=== PATIENT | female | born 1950 | race Caucasian/White ===

== ENCOUNTER → 2017-01-24 | Outpatient (CLI) | payer MEDICARE ==
--- NOTE | 2017-01-25 13:59 | MM ---
Reason for exam: screening (asymptomatic). Last mammogram was performed 1 year ago. History: Patient is postmenopausal. Family history of breast cancer in maternal grandmother at age 60 and breast cancer in paternal grandmother at age 85. Physical Findings: A clinical breast exam by your physician is recommended on an annual basis and results should be correlated with mammographic findings. MG 3D Screening Mammo W/Cad Bilateral CC and MLO view(s) were taken. Prior study comparison: January 19, 2016, bilateral MG screening mammo w CAD. The breast tissue is heterogeneously dense. This may lower the sensitivity of mammography. No significant changes when compared with prior studies. ASSESSMENT: Benign, BI-RAD 2 RECOMMENDATION: Routine screening mammogram of both breasts in 1 year.
== END | disposition home or self-care (01) ==
LOC: RADMAMWWP 06:50
PROVIDERS: ATTEND Family Medicine
DX: Z12.31 Encounter for screening mammogram for malignant neoplasm of breast (principal)
CPT/HCPCS: 77063; G0202

== ENCOUNTER → 2018-01-31 | Outpatient (CLI) | payer MEDICARE ==
--- NOTE | 2018-01-31 13:49 | BD ---
EXAMINATION TYPE: Axial Bone Density DATE OF EXAM: 01/31/2018 COMPARISON: NONE CLINICAL HISTORY: Z78.0 POST MENOPAUSAL Height: 64.5 Weight: 189.4 FRAX RISK QUESTIONS: Alcohol (3 or more units per day): no Family History (Parent hip fracture): no Glucocorticoids (More than 3mos): no (Ex: prednisone, prednisolone, methylprednisolone, dexamethasone, and hydrocortisone). History of Fracture in Adulthood: no Secondary Osteoporosis: 1. Type 1 Diabetes: no 2. Hyperthyroidism: no 3. Menopause before 45: no 4. Malnutrition: no 5. Chronic liver disease: no Rheumatoid Arthritis: no Current Tobacco Use: no RISK FACTORS HISTORY OF: Family History of Osteoporosis: yes Active: yes Diet low in dairy products/other sources of calcium: no Postmenopausal woman: age 49 Lost more than 2 inches in height since high school: no Frequent falls: no Adrenal Insufficiency: no MEDICATIONS: blood pressure meds, cholesterol meds, raloxifene osteoporosis Medications: raloxifene Additional History: EXAM MEASUREMENTS: Bone mineral densitometry was performed using the [employer] System. Bone mineral density as measured about the Lumbar spine is: ----- L1-L4(G/cm2): 1.469 T Score Values are as follows: ----- L2: 1.7 ----- L3: 3.0 ----- L4: 3.8 ----- L1-L4: 2.4 Bone mineral density has: decreased -1.9 % since study of: 01.19.2016 Bone mineral density about the R hip (g/cm2): 0.833 Bone mineral density about the L hip (g/cm2): 0.856 T Score values are as follows: -----R Neck: -1.5 -----L Neck: -1.3 -----R Total: -1.0 -----L Total: -0.9 Bone mineral density has: decreased -0.2 % since study of: 01.19.2016 IMPRESSION: Osteopenia right femur. NOTE: T-SCORE=SD OF THE YOUNG ADULT MEAN.
--- NOTE | 2018-01-31 14:04 | MM ---
Reason for exam: screening (asymptomatic). Last mammogram was performed 1 year ago. History: Patient is postmenopausal. Family history of breast cancer in maternal grandmother at age 60 and breast cancer in paternal grandmother at age 85. Physical Findings: A clinical breast exam by your physician is recommended on an annual basis and results should be correlated with mammographic findings. MG 3D Screening Mammo W/Cad Bilateral CC and MLO view(s) were taken. Prior study comparison: January 24, 2017, bilateral MG 3d screening mammo w/cad. January 19, 2016, bilateral MG screening mammo w CAD. Calcifications are stable. No significant changes when compared with prior studies. ASSESSMENT: Benign, BI-RAD 2 RECOMMENDATION: Routine screening mammogram of both breasts in 1 year.
== END | disposition home or self-care (01) ==
LOC: RADMAMWWP 06:59
PROVIDERS: ATTEND Family Medicine
DX: Z12.31 Encounter for screening mammogram for malignant neoplasm of breast (principal); M85.851 Other specified disorders of bone density and structure, right thigh
CPT/HCPCS: 77063; 77067; 77080

== ENCOUNTER → 2018-08-17 | Outpatient (CLI) | payer MEDICARE ==
--- NOTE | 2018-08-17 09:30 | XR ---
EXAMINATION TYPE: XR cervical spine comp DATE OF EXAM: 08/17/2018 COMPARISON: NONE HISTORY: Neck pain TECHNIQUE: Four views are submitted. FINDINGS: The odontoid is intact. There are no compression deformities. The prevertebral soft tissue structur es are within normal limits. There is multilevel degenerative disc disease with severe changes at C5 -6 and C6-C7. Hypertrophic spurring noted anteriorly. Moderate degenerative disc disease C4-C5. Multi level facet arthropathy is seen and there is multilevel neural foraminal encroachment with most marke d findings at levels C4-C7. IMPRESSION: 1. Multilevel degenerative disc disease with severe changes involving the lower cervical spine with m ultilevel significant foraminal encroachment suspected. Recommend follow-up MRI.
== END ==
LOC: RADXRMAIN 08:59
PROVIDERS: ATTEND Family Medicine
DX: M50.30 Other cervical disc degeneration, unspecified cervical region (principal)
CPT/HCPCS: 72050

== ENCOUNTER → 2019-02-07 | Outpatient (CLI) | payer MEDICARE ==
--- NOTE | 2019-02-07 11:44 | MM ---
Reason for exam: screening (asymptomatic). Last mammogram was performed 1 year ago. History: Patient is postmenopausal. Family history of breast cancer in maternal grandmother at age 60 and breast cancer in paternal grandmother at age 85. Physical Findings: A clinical breast exam by your physician is recommended on an annual basis and results should be correlated with mammographic findings. MG 3D Screening Mammo W/Cad Bilateral CC, MLO, and XCCL view(s) were taken. Prior study comparison: January 31, 2018, bilateral MG 3d screening mammo w/cad. January 24, 2017, bilateral MG 3d screening mammo w/cad. The breast tissue is heterogeneously dense. This may lower the sensitivity of mammography. Benign appearing bilateral calcifications. No suspicious abnormality. No significant changes when compared with prior studies. ASSESSMENT: Benign, BI-RAD 2 RECOMMENDATION: Routine screening mammogram of both breasts in 1 year.
== END | disposition home or self-care (01) ==
LOC: RADMAMWWP 08:30
PROVIDERS: ATTEND Family Medicine
DX: Z12.31 Encounter for screening mammogram for malignant neoplasm of breast (principal)
CPT/HCPCS: 77063; 77067

== ENCOUNTER 2019-02-11 09:12 | Day surgery (SDC) | payer MEDICARE ==
[2019-02-07 15:27] VITALS: BMI 30.9
[~2019-02-11 09:12] MED LIST: LACTATED RINGERS 1,000 ML IV SCH; LIDOCAINE 1% 20 ML VIAL (10MG/ML) FOR IV START INTRADERMA PRN
[2019-02-11 09:28] VITALS: RESP 16; TEMP 98.6
[2019-02-11] MEDS ORDERED: LIDOCAINE 1% INJ 10MG/ML (20 ML MDV) ONE (09:46)
[2019-02-11] MEDS ORDERED: PROPOFOL 10 MG/ML 20 ML VIAL IV ONE (09:46)
--- NOTE | 2019-02-11 10:21 | P.PCN ---
Date of Procedure: 02/11/19 Procedure(s) Performed: Procedure: Total colonoscopy. Preoperative diagnosis: Screening for neoplasia, patient has history of polyps and family history of colon cancer in her mother. Postoperative diagnosis: Sigmoid diverticulosis with no evidence of acute diverticulitis, strictures, polyps or cancer. Preparation: HalfLytely prep. Sedation: Was provided by anesthesia. Brief clinical history: The patient is a 68-year-old female who is scheduled for this evaluation because of family history of colon cancer in her mother and personal history of polyps. Her last exam was in December 2013. The patient has no abdominal complaints, bleeding or anemia. Procedure: With the patient on her left lateral decubitus position and after informed consent and adequate sedation, the perianal area was inspected and it did not show any fissures or fistulas. There were no masses felt on digital rectal examination. The Olympus CFH 190L video colonoscope was then inserted in the rectum in the usual fashion and advanced to the cecum. There were several diverticular orifices seen scattered in the sigmoid as previously noted with no evidence of acute diverticulitis or strictures. The mucosa appeared healthy. No polyps or tumors were seen. I retroflexed the endoscope in the rectum before the endoscope was withdrawn. The patient tolerated the procedure well. Plan: The patient was reassured. Discussed dietary measures. She will follow- up with you as planned and I recommended repeat exam in 5 years.
[2019-02-11 10:40] VITALS: BP 121/81; PULSE 60
== END 2019-02-11 10:50 | disposition home or self-care (01) ==
LOC: ORWHC2ENDO 09:12
DX: Z12.11 Encounter for screening for malignant neoplasm of colon (principal); Z86.010 Personal history of colon polyps; Z80.0 Family history of malignant neoplasm of digestive organs; K57.30 Diverticulosis of large intestine without perforation or abscess without bleeding; K21.9 Gastro-esophageal reflux disease without esophagitis; I10 Essential (primary) hypertension; E78.5 Hyperlipidemia, unspecified; M19.90 Unspecified osteoarthritis, unspecified site; Z79.899 Other long term (current) drug therapy
CPT/HCPCS: G0105; J2001; J2704; 45378

== ENCOUNTER → 2019-05-24 | Outpatient (CLI) | payer MEDICARE ==
[2019-05-24 11:04] LABS: Appearance,Urine Clear (Clear); Bilirubin,Urine Negative (Negative); Blood,Urine Negative (Negative); Color,Urine Light Yellow; Glucose,Urine (UA) Negative (Negative); Ketones,Urine Negative (Negative); Leukocyte Esterase,Urine Negative (Negative); Nitrite,Urine Negative (Negative); Protein,Urine Negative (Negative); Specific Gravity,Urine 1.008 (1.001-1.035); Urobilinogen,Urine <2.0 mg/dL (<2.0)
[2019-05-24 11:07] LABS: HCT 43.3 % (34.0-46.0); HGB 14.2 gm/dL (11.4-16.0); MCH 31.8 pg (25.0-35.0); MCHC 32.7 g/dL (31.0-37.0); MCV 97.1 fL (80.0-100.0); Mean Platelet Volume 7.2; Platelet Count 204 k/uL (150-450); RBC 4.45 m/uL (3.80-5.40); RDW 13.3 % (11.5-15.5); WBC 7.9 k/uL (3.8-10.6)
[2019-05-24 17:03] LABS: Iron Saturation 30.62 (12.00-45.00)
[2019-05-24 17:06] LABS: African American GFR (CKD) 41.4 (60.0-200.0); Albumin 3.9 g/dL (3.80-4.90); Albumin/Globulin Ratio 1.95 (1.60-3.17); Anion Gap 6.4 mmol/L (4.00-12.00); BUN/Creat Ratio 18.67 Ratio (12.00-20.00); Calcium 9.3 mg/dL (8.7-10.3); Carbon Dioxide 28.6 mmol/L (21.6-31.8); Magnesium 1.9 mg/dL (1.5-2.4); Non-African American GFR(CKD) 35.7 (60.0-200.0); Phosphorus 2.7 mg/dL (2.4-5.1); Potassium 4.9 mmol/L (3.5-5.5); Total Bilirubin 0.9 mg/dL (0.3-1.2); Total Protein 5.9 g/dL (6.2-8.2); Uric Acid 6.2 mg/dL (2.9-7.7)
[2019-05-24 17:11] LABS: Ferritin 122.5 ng/mL (10.0-291.0); Vitamin D 25 Hydroxy 57.1 ng/mL (30.0-100.0)
== END ==
LOC: LABWHC1 09:40
PROVIDERS: ATTEND Internal Medicine
DX: N18.3 Chronic kidney disease, stage 3 (moderate) (principal); D63.1 Anemia in chronic kidney disease; E83.31 Familial hypophosphatemia; M10.9 Gout, unspecified; E55.9 Vitamin D deficiency, unspecified
CPT/HCPCS: 36415; 80053; 81003; 82306; 82728; 83540; 83550; 83735; 83970; 84100; 84550; 85027

== ENCOUNTER → 2019-07-01 | Outpatient (CLI) | payer MEDICARE ==
--- NOTE | 2019-07-01 21:45 | XR ---
Thoracic spine HISTORY: Pain 3 views of the thoracic spine There is multilevel spondylosis. Thoracic vertebral bodies show preserved height and alignment. Bone mineralization is reduced. Disc spaces are mildly reduced at the intervertebral levels. There is mild spinal curvature. impression: Degenerative disc disease. There may be underlying osteopenia.
== END | disposition home or self-care (01) ==
LOC: RADXRMAIN 16:19
PROVIDERS: ATTEND Family Medicine
DX: M51.34 Other intervertebral disc degeneration, thoracic region (principal)
CPT/HCPCS: 72070

== ENCOUNTER → 2019-08-05 | Outpatient (CLI) | payer MEDICARE ==
--- NOTE | 2019-08-05 20:11 | MR ---
EXAMINATION TYPE: MR cervical spine wo con DATE OF EXAM: 08/05/2019 COMPARISON: None HISTORY: Cervical disc degeneration, pain in left shoulder CONTRAST: Performed utilizing 0 mL intravenous Gadavist gadolinium contrast. TECHNIQUE: Multiplanar multiecho imaging on a 3.0 Lorna magnet is performed through the cervical spin e. FINDINGS: The craniovertebral junction is normal. Vertebral body alignment is normal. C7-T1: Endplate changes and mild intrathecal sac compression. There is mild right foraminal narrowin g. No spinal canal stenosis or neural foraminal stenosis is present.. C6-7: Broad-based disc bulges moderate intrathecal sac compression. There is close approximation or c ord contact present. AP spinal canal stenosis is not present. No cord deformity is evident. Uncoverte bral joint hypertrophy contributes to bilateral foraminal narrowing.. C5-6: Broad-based disc bulge is present. Endplate spurring from C5 is greater in the central left par acentral regions. Cord contact is present. No AP spinal canal stenosis is present. Neural foramen is moderately narrowed on the left and mild narrowing on the right. C4-5: No focal disc herniation or significant disc bulge is evident. No spinal canal stenosis present . Uncovertebral joint hypertrophy contributes to moderate left foraminal narrowing. C3-4: Small amount central endplate protrusion is present with mild intrathecal sac compression. No A P spinal canal stenosis or cord contact is evident. Neural foramen are patent.. C2-3: No focal disc herniation or significant disc bulge is evident. No spinal canal stenosis or varghese ral foraminal stenosis is present. IMPRESSIONS: 1. Endplate spurring at C5-6 with moderate anterior thecal sac compression and some cord contact. Cor d deformity or spinal canal stenosis is not present. 2. Broad-based disc bulging in close approximation of the spinal cord at C6-7. No spinal canal stenos is present. 3. Uncovertebral joint hypertrophy causing foraminal narrowing C6-7 left C4-5 and moderate narrowing on the left C5-6 with milder narrowing on the right at that level.
== END | disposition home or self-care (01) ==
LOC: RADMRIMAIN 11:02
PROVIDERS: ATTEND Family Medicine
DX: M48.02 Spinal stenosis, cervical region (principal); M50.823 Other cervical disc disorders at C6-C7 level
CPT/HCPCS: 72141

== ENCOUNTER → 2019-09-26 | Outpatient (CLI) | payer MEDICARE ==
[2019-09-26 07:51] LABS: Appearance,Urine Clear (Clear); Bilirubin,Urine Negative (Negative); Blood,Urine Negative (Negative); Color,Urine Light Yellow; Glucose,Urine (UA) Negative (Negative); Ketones,Urine Negative (Negative); Leukocyte Esterase,Urine Negative (Negative); Nitrite,Urine Negative (Negative); Protein,Urine Negative (Negative); Specific Gravity,Urine 1.005 (1.001-1.035); Urobilinogen,Urine <2.0 mg/dL (<2.0)
[2019-09-26 07:53] LABS: HCT 40.9 % (34.0-46.0); HGB 13.5 gm/dL (11.4-16.0); MCH 32.5 pg (25.0-35.0); MCV 98.4 fL (80.0-100.0); Mean Platelet Volume 7.3; Platelet Count 195 k/uL (150-450); RBC 4.16 m/uL (3.80-5.40); RDW 12.7 % (11.5-15.5); WBC 10.1 k/uL (3.8-10.6)
[2019-09-26 12:05] LABS: % Iron Saturation 27.7 (12.00-45.00); African American GFR (CKD) 54.2 (60.0-200.0); Albumin 3.8 g/dL (3.80-4.90); Albumin/Globulin Ratio 2.11 (1.60-3.17); Anion Gap 7.9 mmol/L (4.00-12.00); BUN/Creat Ratio 15.83 Ratio (12.00-20.00); Calcium 9.5 mg/dL (8.7-10.3); Carbon Dioxide 27.1 mmol/L (21.6-31.8); Globulin 1.8 g/dL (1.6-3.3); Magnesium 1.7 mg/dL (1.5-2.4); Non-African American GFR(CKD) 46.7 (60.0-200.0); Phosphorus 3.8 mg/dL (2.4-5.1); Potassium 3.8 mmol/L (3.5-5.5); Total Bilirubin 0.8 mg/dL (0.3-1.2); Total Protein 5.6 g/dL (6.2-8.2); Uric Acid 5.8 mg/dL (2.9-7.7)
[2019-09-26 12:14] LABS: Ferritin 182.9 ng/mL (10.0-291.0)
== END | disposition home or self-care (01) ==
LOC: LABWHC1 07:24
PROVIDERS: ATTEND Nurse Practitioner Family
DX: N18.3 Chronic kidney disease, stage 3 (moderate) (principal); D63.1 Anemia in chronic kidney disease; N39.0 Urinary tract infection, site not specified; N25.81 Secondary hyperparathyroidism of renal origin; M10.9 Gout, unspecified; E55.9 Vitamin D deficiency, unspecified
CPT/HCPCS: 36415; 80053; 81003; 82306; 82728; 83540; 83550; 83735; 83970; 84100; 84550; 85027

== ENCOUNTER → 2020-02-28 | Outpatient (CLI) | payer MEDICARE ==
--- NOTE | 2020-03-02 08:02 | BD ---
EXAMINATION TYPE: Axial Bone Density DATE OF EXAM: 02/28/2020 COMPARISON: 01/31/2018 CLINICAL HISTORY: Height: 64 IN Weight: 184 LBS RISK FACTORS HISTORY OF: Family History of Osteoporosis: YES MOTHER Active: YES Diet low in dairy products/other sources of calcium: YES Postmenopausal woman: AGE 51 Take estrogen and/or progesterone medications: NOT NOW How long: AGE 50-52 MEDICATIONS: Osteoporosis Medications: YES Which medication: Evista ALENDRONATE How Lon+ YEARS Additional Medications: ALENDRONATE, EVISTA, CALCIUM, BLOOD PRESSURE MEDS, BLADDER CONTROL MEDS, CHOL ESTEROL MEDS EXAM MEASUREMENTS: Bone mineral densitometry was performed using the [employer] System. Bone mineral density as measured about the Lumbar spine is: ----- L1-L4(G/cm2): 1.602 T Score Values are as follows: ----- L2: 2.5 ----- L3: 3.8 ----- L4: 5.2 ----- L1-L4: 3.5 Bone mineral density has: Increased 8.1% since study of: 01/31/2018 Bone mineral density about the R hip (g/cm2): 0.831 Bone mineral density about the L hip (g/cm2): 0.893 T Score values are as follows: -----R Neck: -1.5 -----L Neck: -1.0 -----R Total: -0.9 -----L Total: -0.6 Bone mineral density has: Increased 2.6% since study of: 01/31/2018 IMPRESSION: Osteopenia (T Score between -2.5 and -1) remains present femoral neck level right hip.. There remains slightly increased risk of fracture and the patient may be considered for treatment. Re-Screen 2-5 years. NOTE: T-SCORE=SD OF THE YOUNG ADULT MEAN.
== END | disposition home or self-care (01) ==
LOC: RADBDWWP 07:53
PROVIDERS: ATTEND Family Medicine
DX: M85.88 Other specified disorders of bone density and structure, other site (principal)
CPT/HCPCS: 77080

== ENCOUNTER → 2020-04-14 | Outpatient (CLI) | payer MEDICARE ==
--- NOTE | 2020-04-14 09:47 | MM ---
Reason for exam: additional evaluation requested from abnormal screening. Last mammogram was performed less than 1 month ago. History: Patient is postmenopausal. Family history of breast cancer in maternal grandmother at age 60 and breast cancer in paternal grandmother at age 85. Took hormonal contraceptives for 5 years. Took estrogen for 2 years. Physical Findings: Nurse did not find any significant physical abnormalities on exam. MG 3D Work Up W/Cad LT CC with magnification, ML with magnification, and ML view(s) were taken of the left breast. Prior study comparison: April 03, 2020, bilateral MG 3d screening mammo w/cad. February 07, 2019, bilateral MG 3d screening mammo w/cad. There are coarse calcifications seen. 6 month follow up. These results were verbally communicated with the patient and result sheet given to the patient on 04/14/20. ASSESSMENT: Probably benign, BI-RAD 3 RECOMMENDATION: Follow-up diagnostic mammogram of the left breast in 6 months.
== END | disposition home or self-care (01) ==
LOC: RADMAMWWP 08:06
PROVIDERS: ATTEND Family Medicine
DX: R92.8 Other abnormal and inconclusive findings on diagnostic imaging of breast (principal)
CPT/HCPCS: 77065; G0279; 77061

== ENCOUNTER → 2020-07-15 | Outpatient (CLI) | payer MEDICARE ==
[2020-07-15 10:05] LABS: HCT 41.8 % (34.0-46.0); HGB 14.1 gm/dL (11.4-16.0); MCH 33.3 pg (25.0-35.0); MCHC 33.9 g/dL (31.0-37.0); MCV 98.5 fL (80.0-100.0); Mean Platelet Volume 7.5; Platelet Count 192 k/uL (150-450); RBC 4.24 m/uL (3.80-5.40); RDW 12.7 % (11.5-15.5); WBC 8.4 k/uL (3.8-10.6)
[2020-07-15 10:10] LABS: Appearance,Urine Clear (Clear); Bilirubin,Urine Negative (Negative); Blood,Urine Negative (Negative); Color,Urine Light Yellow; Glucose,Urine (UA) Negative (Negative); Ketones,Urine Negative (Negative); Leukocyte Esterase,Urine Negative (Negative); Nitrite,Urine Negative (Negative); PH, Urine 7.5 (5.0-8.0); Protein,Urine Negative (Negative); Specific Gravity,Urine 1.004 (1.001-1.035); Urobilinogen,Urine <2.0 mg/dL (<2.0)
[2020-07-15 14:59] LABS: Ferritin 56.9 ng/mL (10.0-291.0)
[2020-07-15 22:08] LABS: % Iron Saturation 20.21 (12.00-45.00); African American GFR (CKD) 59.7 (60.0-200.0); Albumin 3.7 g/dL (3.80-4.90); Albumin/Globulin Ratio 1.76 (1.60-3.17); Anion Gap 6.6 mmol/L (4.00-12.00); BUN/Creat Ratio 12.73 Ratio (12.00-20.00); Calcium 8.6 mg/dL (8.7-10.3); Carbon Dioxide 27.4 mmol/L (21.6-31.8); Globulin 2.1 g/dL (1.6-3.3); Magnesium 2.1 mg/dL (1.5-2.4); Non-African American GFR(CKD) 51.5 (60.0-200.0); Phosphorus 2.8 mg/dL (2.4-5.1); Potassium 4.1 mmol/L (3.5-5.5); Total Bilirubin 0.8 mg/dL (0.2-1.2); Total Protein 5.8 g/dL (6.2-8.2); Uric Acid 4.8 mg/dL (2.9-7.7)
== END | disposition home or self-care (01) ==
LOC: LABWHC1 08:51
PROVIDERS: ATTEND Internal Medicine
DX: N18.30 Chronic kidney disease, stage 3 unspecified (principal)
CPT/HCPCS: 36415; 80053; 81003; 82306; 82728; 83540; 83550; 83735; 83970; 84100; 84550; 85027

== ENCOUNTER → 2020-12-03 | Outpatient (CLI) | payer MEDICARE ==
[2020-12-03 10:56] LABS: Appearance,Urine Clear (Clear); Bilirubin,Urine Negative (Negative); Blood,Urine Negative (Negative); Color,Urine Light Yellow; Glucose,Urine (UA) Negative (Negative); Ketones,Urine Negative (Negative); Leukocyte Esterase,Urine Negative (Negative); Nitrite,Urine Negative (Negative); Protein,Urine Negative (Negative); Specific Gravity,Urine 1.006 (1.001-1.035); Urobilinogen,Urine <2.0 mg/dL (<2.0)
[2020-12-03 14:46] LABS: HCT 37.8 % (37.2-46.3); HGB 12.3 g/dL (12.0-15.0); MCH 31.7 pg (27.0-32.0); MCHC 32.5 g/dL (32.0-37.0); MCV 97.4 fL (80.0-97.0); Mean Platelet Volume 10.8 fL (9.5-12.2); Platelet Count 208 X 10*3/uL (140-440); RBC 3.88 X 10*6/uL (4.10-5.20); RDW 13.8 % (11.5-14.5); WBC 7.25 X 10*3/uL (4.50-10.00)
[2020-12-03 18:18] LABS: % Iron Saturation 22.29 (12.00-45.00); African American GFR (CKD) 59.3 (60.0-200.0); Albumin 3.8 g/dL (3.80-4.90); Anion Gap 9.7 mmol/L (4.00-12.00); BUN/Creat Ratio 16.36 Ratio (12.00-20.00); Calcium 8.8 mg/dL (8.7-10.3); Carbon Dioxide 24.3 mmol/L (21.6-31.8); Globulin 1.9 g/dL (1.6-3.3); Magnesium 1.9 mg/dL (1.5-2.4); Non-African American GFR(CKD) 51.2 (60.0-200.0); Phosphorus 2.6 mg/dL (2.4-5.1); Potassium 4.3 mmol/L (3.5-5.5); Total Bilirubin 0.7 mg/dL (0.2-1.2); Total Protein 5.7 g/dL (6.2-8.2); Uric Acid 5.6 mg/dL (2.9-7.7)
[2020-12-03 18:27] LABS: Ferritin 39.7 ng/mL (10.0-291.0)
== END | disposition home or self-care (01) ==
LOC: LABWHC1 09:16
PROVIDERS: ATTEND Nurse Practitioner Family
DX: N18.30 Chronic kidney disease, stage 3 unspecified (principal)
CPT/HCPCS: 36415; 80053; 81003; 82306; 82728; 83540; 83550; 83735; 83970; 84100; 84550; 85027

== ENCOUNTER → 2020-12-10 | Outpatient (CLI) | payer MEDICARE ==
--- NOTE | 2020-12-11 12:32 | MM ---
Reason for exam: additional evaluation requested from abnormal screening. Last mammogram was performed 8 months ago. History: Patient is postmenopausal. Family history of breast cancer in maternal grandmother at age 60 and breast cancer in paternal grandmother at age 85. Took hormonal contraceptives for 5 years. Took estrogen for 2 years. Physical Findings: Nurse did not find any significant physical abnormalities on exam. MG 3D Diag Mammo W/Cad LT CC, MLO, and LM view(s) were taken of the left breast. Prior study comparison: April 14, 2020, left breast MG 3d work up w/cad LT. April 03, 2020, bilateral MG 3d screening mammo w/cad. The breast tissue is heterogeneously dense. This may lower the sensitivity of mammography. Finding: There are stable coarse heterogeneous, grouped/clustered calcifications in the left breast. These results were verbally communicated with the patient and result sheet given to the patient on 12/10/20. ASSESSMENT: Benign, BI-RAD 2 RECOMMENDATION: Return to routine screening mammogram schedule for both breasts.
== END | disposition home or self-care (01) ==
LOC: RADMAMWWP 14:10
PROVIDERS: ATTEND Family Medicine
DX: R92.1 Mammographic calcification found on diagnostic imaging of breast (principal); Z80.3 Family history of malignant neoplasm of breast; Z78.0 Asymptomatic menopausal state
CPT/HCPCS: 77065; G0279; 77061

== ENCOUNTER → 2021-01-14 | Outpatient (CLI) | payer MEDICARE ==
--- NOTE | 2021-01-14 15:50 | XR ---
EXAMINATION TYPE: XR Hip Complete LT DATE OF EXAM: 01/14/2021 CLINICAL HISTORY: Left hip pain when standing TECHNIQUE: AP and frogleg views of the left hip are obtained. COMPARISON: None. FINDINGS: There is no acute fracture or dislocation of the left hip. There is joint space narrowing of the superior hip, and moderate superolateral acetabular spurring. Scattered vascular calcification s. IMPRESSION: Moderate degenerative change of the left hip.
--- NOTE | 2021-01-14 15:52 | XR ---
EXAMINATION TYPE: XR knee complete LT DATE OF EXAM: 01/14/2021 COMPARISON: NONE HISTORY: Left knee pain when standing. M25.562 L knee pain. TECHNIQUE: AP, lateral, and oblique views of the left knee obtained. FINDINGS: No acute fracture. No dislocation. There is mild to moderate spurring and joint space narro wing at the medial compartment. Minimal spurring at the patellofemoral compartment. Patellar quadrice ps tendon enthesophyte may represent sequela of tendinosis. Normal mineralization. No significant sof t tissue swelling or suprapatellar joint effusion. IMPRESSION: No acute fracture or dislocation. Degenerative changes as above.
== END | disposition home or self-care (01) ==
LOC: RADXRMAIN 08:41
PROVIDERS: ATTEND Family Medicine
DX: M17.12 Unilateral primary osteoarthritis, left knee (principal); M76.892 Other specified enthesopathies of left lower limb, excluding foot
CPT/HCPCS: 73502

== ENCOUNTER 2021-02-15 10:12 | Day surgery (SDC) | payer MEDICARE ==
[2021-02-11 14:51] VITALS: BMI 28.6
[~2021-02-15 10:12] MED LIST changes: +LIDOCAINE 1% (10MG/ML) FOR IV START INTRADERMA PRN; -LIDOCAINE 1% 20 ML VIAL (10MG/ML) FOR IV START INTRADERMA PRN
[2021-02-15 10:44] VITALS: RESP 16; TEMP 97.7
[2021-02-15] MEDS ORDERED: PROPOFOL 10 MG/ML 20 ML VIAL IV ONE (11:32)
[2021-02-15] MEDS ORDERED: LIDOCAINE 1% INJ 10MG/ML (20 ML MDV) ONE (11:32)
--- NOTE | 2021-02-15 12:01 | P.PCN ---
Date of Procedure: 02/15/21 Description of Procedure: BRIEF HISTORY: Patient is a 70-year-old female presenting for outpatient esophagogastroduodenoscopy for evaluation of GERD. Patient reports a long- standing history of reflux previously treated with Zantac. She stopped the medication after this was taken off the market and reports worsening symptoms. Currently on omeprazole with good control of her symptoms. PROCEDURE PERFORMED: Esophagogastroduodenoscopy with biopsy. PREOPERATIVE DIAGNOSIS: GERD. ESTIMATED BLOOD LOSS: Minimal. IV sedation per anesthesia. PROCEDURE: After informed consent was obtained, the patient was brought into the endoscopy unit. IV sedation was administered by Anesthesia under continuous monitoring. Initially the Olympus GIF-190 video endoscope was inserted into the mouth. Esophagus intubated without any difficulty. It was gradually advanced into the stomach and duodenum and carefully examined. The bulb and the second part of the duodenum appeared normal Follow with biopsies taken. The scope at this time was withdrawn to the stomach, adequately insufflated with air, and upon careful examination, mucosa of the antrum, body, cardia and the fundus appeared normal, With biopsies of the antrum and body taken in the setting of mild scattered erythema suggestive of mild gastritis. The scope was then withdrawn into the esophagus. The GE junction was located at 38 cm from the incisors. The esophagus appeared normal. , with biopsies of lower esophagus taken There were no erosions or ulcerations seen and the patient tolerated the procedure well. IMPRESSION: 1. Mild gastritis. 2. Biopsies of the duodenum, antrum and body and lower esophagus. RECOMMENDATIONS: The findings of this examination were discussed with the patient and her family. Okay to resume diet. Okay to resume medications. Await pathology from biopsies. Continue omeprazole therapy. Follow up in primary care physician's office as previously scheduled.
[2021-02-15 12:15] VITALS: BP 120/66; PULSE 56
== END 2021-02-15 12:42 | disposition home or self-care (01) ==
LOC: ORWHC2ENDO 10:12
PROVIDERS: ATTEND Internal Medicine
DX: K21.00 Gastro-esophageal reflux disease with esophagitis, without bleeding (principal); K29.70 Gastritis, unspecified, without bleeding; I10 Essential (primary) hypertension; E78.5 Hyperlipidemia, unspecified; N28.9 Disorder of kidney and ureter, unspecified; M19.90 Unspecified osteoarthritis, unspecified site; Z79.899 Other long term (current) drug therapy; Z98.890 Other specified postprocedural states
CPT/HCPCS: 88305; 43239; J2001; J2704

== ENCOUNTER → 2021-05-12 | Outpatient (CLI) | payer MEDICARE ==
--- NOTE | 2021-05-14 11:55 | MM ---
Reason for exam: screening (asymptomatic). Last mammogram was performed 5 months ago. History: Patient is postmenopausal. Family history of breast cancer in maternal grandmother at age 60 and breast cancer in paternal grandmother at age 85. Took hormonal contraceptives for 5 years. Took estrogen for 2 years. Physical Findings: A clinical breast exam by your physician is recommended on an annual basis and results should be correlated with mammographic findings. MG 3D Screening Mammo W/Cad Bilateral CC and MLO view(s) were taken. Prior study comparison: December 10, 2020, left breast MG 3d diag mammo w/cad LT. April 03, 2020, bilateral MG 3d screening mammo w/cad. February 07, 2019, bilateral MG 3d screening mammo w/cad. There are scattered fibroglandular densities. No significant changes when compared with prior studies. ASSESSMENT: Benign, BI-RAD 2 RECOMMENDATION: Routine screening mammogram of both breasts in 1 year.
== END | disposition home or self-care (01) ==
LOC: RADMAMWWP 15:33
PROVIDERS: ATTEND Family Medicine
DX: Z12.31 Encounter for screening mammogram for malignant neoplasm of breast (principal); Z78.0 Asymptomatic menopausal state; Z80.3 Family history of malignant neoplasm of breast; Z79.3 Long term (current) use of hormonal contraceptives
CPT/HCPCS: 77063; 77067

== ENCOUNTER → 2021-07-02 | Outpatient (CLI) | payer MEDICARE ==
[2021-07-02 11:30] LABS: Appearance,Urine Clear (Clear); Bilirubin,Urine Negative (Negative); Blood,Urine Negative (Negative); Color,Urine Light Yellow; Glucose,Urine (UA) Negative (Negative); Ketones,Urine Negative (Negative); Leukocyte Esterase,Urine Negative (Negative); Nitrite,Urine Negative (Negative); PH, Urine 6.5 (5.0-8.0); Protein,Urine Negative (Negative); Specific Gravity,Urine 1.006 (1.001-1.035); Urobilinogen,Urine <2.0 mg/dL (<2.0)
[2021-07-02 16:22] LABS: HGB 13.3 g/dL (12.0-15.0); MCH 31.4 pg (27.0-32.0); MCHC 33.3 g/dL (32.0-37.0); MCV 94.6 fL (80.0-97.0); Platelet Count 216 X 10*3/uL (140-440); RBC 4.23 X 10*6/uL (4.10-5.20); RDW 12.9 % (11.5-14.5); WBC 7.25 X 10*3/uL (4.50-10.00)
[2021-07-02 17:38] LABS: % Iron Saturation 24.13 (12.00-45.00); African American GFR (CKD) 59.3 (60.0-200.0); Albumin 3.9 g/dL (3.8-4.9); Albumin/Globulin Ratio 1.77 (1.60-3.17); Anion Gap 10.3 mmol/L (4.00-12.00); BUN/Creat Ratio 11.55 Ratio (12.00-20.00); Blood Urea Nitrogen 12.7 mg/dL (9.0-27.0); Calcium 9.2 mg/dL (8.7-10.3); Carbon Dioxide 24.7 mmol/L (21.6-31.8); Ferritin 48.2 ng/mL (10.0-291.0); Globulin 2.2 g/dL (1.6-3.3); Magnesium 2.1 mg/dL (1.5-2.4); Non-African American GFR(CKD) 51.2 (60.0-200.0); Potassium 4.2 mmol/L (3.5-5.5); Total Bilirubin 0.6 mg/dL (0.30-1.20); Total Protein 6.1 g/dL (6.2-8.2); Uric Acid 4.6 mg/dL (2.9-7.7)
== END | disposition home or self-care (01) ==
LOC: LABWHC1 09:36
PROVIDERS: ATTEND Nurse Practitioner Family
DX: N18.30 Chronic kidney disease, stage 3 unspecified (principal); D64.9 Anemia, unspecified; N39.0 Urinary tract infection, site not specified; M10.9 Gout, unspecified
CPT/HCPCS: 36415; 80053; 81003; 82728; 83540; 83550; 83735; 84100; 84550; 85027

== ENCOUNTER → 2022-01-03 | Outpatient (CLI) | payer MEDICARE ==
[2022-01-03 18:39] LABS: HCT 41.7 % (37.2-46.3); HGB 13.4 g/dL (12.0-15.0); MCH 30.9 pg (27.0-32.0); MCHC 32.1 g/dL (32.0-37.0); MCV 96.1 fL (80.0-97.0); Mean Platelet Volume 11.2 fL (9.5-12.2); NRBC Per 100 WBC 0 /100 WBCS (0.0-0.0); Platelet Count 208 X 10*3/uL (140-440); RBC 4.34 X 10*6/uL (4.10-5.20); RDW 14.4 % (11.5-14.5); WBC 8.24 X 10*3/uL (4.50-10.00)
[2022-01-03 20:35] LABS: Appearance,Urine Clear (Clear); Bacteria,Urine None Seen /HPF (None Seen); Bilirubin,Urine Negative (Negative); Blood,Urine Negative (Negative); Color,Urine Yellow (Yellow); Ketones,Urine Negative (Negative); Nitrite,Urine Negative (Negative); Specific Gravity,Urine 1.012 (1.001-1.030); Urobilinogen,Urine 0.2 (0.2,1.0)
[2022-01-04 01:14] LABS: % Iron Saturation 28.84 (12.00-45.00); African American GFR (CKD) 46.8 (60.0-200.0); Albumin 3.9 g/dL (3.8-4.9); Albumin/Globulin Ratio 1.8 (1.60-3.17); Anion Gap 12.5 mmol/L (10.00-18.00); BUN/Creat Ratio 15.71 Ratio (12.00-20.00); Blood Urea Nitrogen 20.9 mg/dL (9.0-27.0); Calcium 9.1 mg/dL (8.7-10.3); Carbon Dioxide 22.1 mmol/L (20.0-27.5); Globulin 2.2 g/dL (1.6-3.3); Magnesium 2.2 mg/dL (1.5-2.4); Non-African American GFR(CKD) 40.4 (60.0-200.0); Phosphorus 3.4 mg/dL (2.4-5.1); Potassium 4.3 mmol/L (3.5-5.5); Total Bilirubin 0.8 mg/dL (0.30-1.20); Total Protein 6.1 g/dL (6.2-8.2); Uric Acid 5.4 mg/dL (2.9-7.7)
[2022-01-04 01:29] LABS: Ferritin 77.9 ng/mL (10.0-291.0)
== END | disposition home or self-care (01) ==
LOC: LABWHC1 07:58
PROVIDERS: ATTEND Internal Medicine
DX: N18.31 Chronic kidney disease, stage 3a (principal); N39.0 Urinary tract infection, site not specified; N25.81 Secondary hyperparathyroidism of renal origin; E55.9 Vitamin D deficiency, unspecified; M10.9 Gout, unspecified
CPT/HCPCS: 36415; 80053; 81001; 82306; 82728; 83540; 83550; 83735; 83970; 84100; 84550; 85027

== ENCOUNTER → 2022-02-16 | Outpatient (CLI) | payer MEDICARE ==
--- NOTE | 2022-02-16 09:24 | US ---
EXAMINATION TYPE: US kidneys/renal and bladder DATE OF EXAM: 02/16/2022 COMPARISON: US CLINICAL HISTORY: N18.31 STAGE 3 CHR KIDNEY DISEASE. Chronic kidney disease. EXAM MEASUREMENTS: Right Kidney: 10.4 x 4.5 x 4.0 cm Left Kidney: 9.9 x 4.8 x 4.5 cm Right Kidney: Anechoic area seen upper pole: 1.7 x 1.8 x 1.7 cm. Left Kidney: No hydronephrosis or masses seen Bladder: Appears anechoic. Bilateral Jets seen: Yes IMPRESSION: Simple cyst upper pole right kidney.
== END | disposition home or self-care (01) ==
LOC: RADUSWWP 08:07
PROVIDERS: ATTEND Internal Medicine Nephrology
DX: N18.31 Chronic kidney disease, stage 3a (principal); N28.1 Cyst of kidney, acquired
CPT/HCPCS: 76770

== ENCOUNTER → 2022-03-18 | Outpatient (CLI) | payer MEDICARE ==
--- NOTE | 2022-03-19 06:35 | BD ---
EXAMINATION TYPE: Axial Bone Density DATE OF EXAM: 03/18/2022 COMPARISON: 02.28.2020 CLINICAL HISTORY: 71 years year old Female. ICD-10 CODE: M85.80 DISORDER OF BONE Height: 63.5 Weight: 180 FRAX RISK QUESTIONS: Family History (Parent hip fracture): YES RISK FACTORS HISTORY OF: Family History of Osteoporosis: YES Active: YES Diet low in dairy products/other sources of calcium: YES Postmenopausal woman: YES, 51YRS OLD Take estrogen and/or progesterone medications: IN PAST FOR 3 YRS Hyperparathyroidism: NO Adrenal Insufficiency: NO MEDICATIONS: Osteoporosis Medications: YES, EVISTA FOR 10+ YRS Additional Medications: BP MEDS, CALCIUM, STATIN FOR CHOLESTEROL, LBL MEDS, REFLUX MEDS, MULTIVITAMIN Additional History: LBL, CHOLESTEROL, OSTEOPOROSIS, HYPERTENSION, REFLUX EXAM MEASUREMENTS: Bone mineral densitometry was performed using the [employer] System. Bone mineral density as measured about the Lumbar spine is: ----- L1-L4(G/cm2): 1.641 T Score Values are as follows: ----- L1: 2.1 ----- L2: 3.5 ----- L3: 4.7 ----- L4: 5.8 ----- L1-L4: 3.8 Bone mineral density has: Increased 2.4% since study of: 02.28.2020 Bone mineral density about the R hip (g/cm2): 0.934 Bone mineral density about the L hip (g/cm2): 0.967 T Score values are as follows: -----R Neck: -0.5 -----L Neck: -0.6 -----R Total: -0.6 -----L Total: -0.3 Bone mineral density has: Increased 3.9% since study of: 02.28.2020 FRAX%s: The graph provided illustrates a 12.0% chance for a major osteoporotic fx and a 1.4% chance f or the hips probability for fx in 10 years time. IMPRESSION: Normal (Values between +1 and -1 indicate normal bone mass). Consider repeating this study in 5 year s or sooner if there is some new clinical indication. NOTE: T-SCORE=SD OF THE YOUNG ADULT MEAN.
== END | disposition home or self-care (01) ==
LOC: RADBDWWP 07:10
PROVIDERS: ATTEND Family Medicine
DX: M85.80 Other specified disorders of bone density and structure, unspecified site (principal)
CPT/HCPCS: 77080

== ENCOUNTER → 2022-05-13 | Outpatient (CLI) | payer MEDICARE ==
--- NOTE | 2022-05-17 08:50 | MM ---
Reason for Exam: Screening (asymptomatic). Last screening mammogram was performed 12 month(s) ago. Patient History: Menarche at age 14. First Full-Term at age 28. Postmenopausal. Patient used Estrogen for 2 years. Patient used Hormonal Contraceptives for 5 years. Paternal grandmother had breast cancer, age 85. Maternal grandmother had breast cancer, age 60. Risk Values: Whitney 5 year model risk: 1.9%. NCI Lifetime model risk: 5.6%. Prior Study Comparison: 01/19/2016 Bilateral Screening Mammogram, [facility]. 01/24/2017 Bilateral Screening Mammogram, [facility]. 01/31/2018 Bilateral Screening Mammogram, [facility]. 02/07/2019 Bilateral Screening Mammogram, [facility]. 04/03/2020 Bilateral Screening Mammogram, [facility]. 04/14/2020 Left Diagnostic Mammogram, [facility]. 12/10/2020 Left Diagnostic Mammogram, [facility]. 05/12/2021 Bilateral Screening Mammogram, [facility]. Tissue Density: There are scattered fibroglandular densities. Findings: Analyzed By CAD. There are scattered calcifications bilaterally. There is a developing group of calcifications within the left breast. Additional evaluation with magnification views is recommended. Overall Assessment: Incomplete: need additional imaging evaluation, BI-RAD 0 Management: Diagnostic Mammogram of the left breast. A negative mammogram report should not preclude additional follow up of suspicious palpable abnormalities. Patient should continue monthly self breast exam. A clinical breast exam by your physician is recommended on an annual basis and results should be correlated with mammographic findings. Electronically signed and approved by: Romie Oliveira D.O. Radiologis
== END | disposition home or self-care (01) ==
LOC: RADMAMWWP 07:17
PROVIDERS: ATTEND Family Medicine
DX: Z12.31 Encounter for screening mammogram for malignant neoplasm of breast (principal); Z78.0 Asymptomatic menopausal state; Z80.3 Family history of malignant neoplasm of breast
CPT/HCPCS: 77063; 77067

== ENCOUNTER → 2022-05-19 | Outpatient (CLI) | payer MEDICARE ==
--- NOTE | 2022-05-19 09:00 | MM ---
Reason for Exam: Additional evaluation requested from abnormal screening. Last screening mammogram was performed less than 1 month ago. Patient History: Menarche at age 14. First Full-Term at age 28. Postmenopausal. Patient used Estrogen for 2 years. Patient used Hormonal Contraceptives for 5 years. Paternal grandmother had breast cancer, age 85. Maternal grandmother had breast cancer, age 60. Risk Values: Whitney 5 year model risk: 1.9%. NCI Lifetime model risk: 5.6%. Prior Study Comparison: 12/10/2020 Left Diagnostic Mammogram, [facility]. 05/12/2021 Bilateral Screening Mammogram, [facility]. 05/13/2022 Bilateral MG 3D screening mammo w/cad, [facility]. Tissue Density: Left: There are scattered fibroglandular densities. Findings: Analyzed By CAD. Course grouped microcalcifications 5:00 left breast are noted. Stereo biopsy recommended. Overall Assessment: Suspicious, BI-RAD 4 Management: Stereotactic Core Biopsy of the left breast. Electronically signed and approved by: Kaela Schofield M.D. Radiologist
== END | disposition home or self-care (01) ==
LOC: RADMAMWWP 07:31
PROVIDERS: ATTEND Family Medicine
DX: R92.8 Other abnormal and inconclusive findings on diagnostic imaging of breast (principal); Z78.0 Asymptomatic menopausal state; Z80.3 Family history of malignant neoplasm of breast
CPT/HCPCS: 77065; G0279; 77061

== ENCOUNTER → 2022-06-23 | Day surgery (SDC) | payer MEDICARE ==
[2022-06-23 07:24] VITALS: RESP 16
--- NOTE | 2022-06-23 08:07 | P.GSHP ---
History of Present Illness H&P Date: 06/23/22 Chief Complaint: abnormal left breast mammogram Mallorie had a routine screening mammogram performed on 9221. The mammogram revealed calcifications of concern in the left breast. This was confirmed on a left breast diagnostic mammogram of 9821. Stereotactic core b iopsy was recommended. The patient does not feel any lumps masses or nodules of concern in either breast. She has not had any recent trauma or infection in her breast. She has not had any surgery or biopsies of her breast in the past. This was found on a routine screening mammogram. Caffiene: 2 cups/day nicotine: none chocolate: occasional BCP: < 5 years in early twenties Family History: mother: colon cancer maternal grandmother: breast cancer at 85 maternal grandfather: brain cancer father: colon cancer paternal grandmother: breast cancer Hormonal History: menarche: 14 , age at first : 28, breast fed: no menopause: 50 hormones: 2 years; at the time of menopause; Premarin cream one time a month Surgical history: midfoot fusion left foot and bunyon cataract surgery arthoscopy on both knees Medical History: chronic kidney disease HTN ostepenia Social History: Nicotine: Negative Alcohol: Negative Drugs: Negative - Constitutional Constitutional: Denies chills, Denies fever - EENT Eyes: bilateral as per HPI, denies blurred vision, denies pain Ears: bilateral: decreased hearing (hearing aids), tinnitus Ears, nose, mouth and throat: Denies headache, Denies sore throat - Breasts Breasts: bilateral: as per HPI - Cardiovascular Cardiovascular: Denies chest pain, Denies shortness of breath - Respiratory Respiratory: Denies cough, Denies 7 - Gastrointestinal Comment: last colonoscopy 5 years ago Gastrointestinal: Denies abdominal pain, Denies diarrhea, Denies nausea, Denies vomiting - Genitourinary (Female) Genitourinary: Denies dysuria, Denies hematuria - Menstruation Menstruation: Reports postmenopausal - Musculoskeletal Comment: arthritis in knees Musculoskeletal: Reports as per HPI, Denies myalgias - Integumentary Integumentary: Denies pruritus, Denies rash - Neurological Neurological: Denies numbness, Denies weakness - Psychiatric Psychiatric: Denies anxiety, Denies depression - Endocrine Endocrine: Denies fatigue, Denies weight change - Hematologic/Lymphatic Comment: none - Allergic/Immunologic Allergic/Immunologic: Reports seasonal allergies Past Medical History Past Medical History: GERD/Reflux, Hyperlipidemia, Hypertension, Osteoarthritis (OA), Renal Disease Additional Past Medical History / Comment(s): DDD NECK,ENVIRONMENTAL ALLERGIES, CKD STAGE 3-A. History of Any Multi-Drug Resistant Organisms: None Reported Past Surgical History: Orthopedic Surgery Additional Past Surgical History / Comment(s): arthroscopic hilda knees, LEFT BUNIONECTOMY AND MID FOOT FUSION WITH CLIPS AND PINS (08/2020), COLONOSCOPY. bilat Cataract surgery 2019, lens implants Past Anesthesia/Blood Transfusion Reactions: No Reported Reaction Past Psychological History: No Psychological Hx Reported Smoking Status: Never smoker Past Alcohol Use History: Occasional Past Drug Use History: None Reported - Past Family History Mother Family Medical History: Cancer Additional Family Medical History / Comment(s): colon cancer Father Family Medical History: Cancer Additional Family Medical History / Comment(s): colon cancer Medications and Allergies Home Medications Medication Instructions Recorded Confirmed Type Raloxifene [Evista] 60 mg PO DAILY 04/03/16 06/23/22 History Solifenacin Succinate [Vesicare] 10 mg PO DAILY 04/03/16 06/23/22 History Alendronate Sodium [Fosamax] 70 mg PO REYES 02/07/19 06/23/22 History Irbesartan/Hydrochlorothiazide 1 each PO HS 02/07/19 06/23/22 History [Irbesartan-Hctz 300-12.5 mg Tb] Simvastatin [Zocor] 20 mg PO HS 02/07/19 06/23/22 History carvediloL [Coreg] 3.125 mg PO BID 02/07/19 06/23/22 History tiZANidine [Zanaflex] 4 mg PO DAILY PRN 02/07/19 06/23/22 History Calcium Carbonate [Calcium] 600 mg PO DAILY 02/11/21 06/23/22 History Iron 45 mg PO DAILY 02/11/21 06/23/22 History Loratadine [Claritin] 10 mg PO DAILY 02/11/21 06/23/22 History Multivit-Min/Iron/Folic/Lutein 1 each PO DAILY 02/11/21 06/23/22 History [Centrum Silver Women Tablet] Omeprazole 20 mg PO DAILY 02/11/21 06/23/22 History Ubidecarenone [Co Q-10] 400 mg PO DAILY 02/11/21 06/23/22 History Acetaminophen [Tylenol Arthritis] 650 mg PO DAILY 05/20/22 06/23/22 History [place]-3/Dha/Epa/Fish Oil [Fish Oil 1 each PO DAILY 05/20/22 06/23/22 History 1,000 mg Softgel] Allergies Allergy/AdvReac Type Severity Reaction Status Date / Time No Known Allergies Allergy Verified 06/23/22 07:39 Surgical - Exam Vital Signs Temp Pulse Resp BP 98.4 F 73 16 142/86 06/23/22 07:17 06/23/22 07:17 06/23/22 07:17 06/23/22 07:17 BMI: 29.2 - General no distress - Eyes normal ocular movement - Neck trachea midline - Respiratory normal respiratory effort, clear to auscultation - Cardiovascular Rhythm: regular Heart Sounds: normal: S1, S2 - Abdomen Abdomen: soft, non tender, no guarding, no rigid, no rebound - Integumentary normal turgor - Neurologic no disoriented, no combative - Musculoskeletal normal gait - Psychiatric oriented to time, oriented to person, oriented to place, speech is normal, memory intact Breast Exam: BRA: 38C Inspection: Bilateral grade 2/3 ptosis Palpation: Right breast: Multi-positional exam fibrocystic changes no dominant masses or nodules of concern Right axilla: No adenopathy of concern Left breast: Multiple positional exam fibrocystic changes no dominant masses or nodules of concern Left axilla: No adenopathy of concern Results Mammogram reviewed with Dr. Schofield; microcalcifications of concern lower mid- breast left side Assessment and Plan Assessment: Impression: Abnormal left breast mammogram, microcalcifications lower mid-breast of concern BIRADS for stereotactic core biopsy recommended Plan: Stereotactic core biopsy left breast Risk and benefits of the procedure discussed with the patient. Risks include but are not limited to bleeding, infection, reaction to the anesthetic. If the biopsy specimen were to be discordant and further tissue acquisition may be necessary. Alternatives such as watchful waiting resection of the operating room R discussed but not recommended. The patient understands and wishes to proceed. Cc: Dr. Jang
[2022-06-23 08:38] VITALS: BP 135/79; PULSE 61; TEMP 98.1
--- NOTE | 2022-06-23 12:29 | MM ---
Date of Procedure: 06/23/22 Preoperative Diagnosis: Microcalcifications of concern left breast lower midportion Postoperative Diagnosis: Same Procedure(s) Performed: Stereotactic core biopsy left breast lower midportion/CC from below approach utilized Anesthesia: local Surgeon: Ana Garcia Pathology: other (Breast tissue with microcalcifications and specimen) Condition: stable Disposition: same day Indications for Procedure: Abnormal microcalcifications of concern left breast lower midportion Operative Findings: Radiographic specimen reveals microcalcifications of concern Description of Procedure: The patient is a 71-year-old white female who underwent a routine screening mammogram and was noted to have coarse grouped microcalcifications left breast 5 o'clock position, a stereotactic core biopsy was recommended. Risks and benefits of the procedure were discussed with the patient as well as alternatives such as watchful waiting or resection in the operating room which were not recommended. The patient wished to proceed. The patient was brought to the stereotactic core biopsy room after physical examination. She was positioned prone on the lo-rad table. A CC from below approach was utilized. A hospice chaplain film was obtained and the area of concern was identified. The lesion was targeted. The breast was prepped using Betadine. 20 mL of 1% lidocaine were used to anesthetize the area of concern. A 9-gauge vacuum-assisted core rotating biopsy needle was driven to the correct coordinates. A prefire film was obtained. The needle was noted to be in the correct location. The needle was fired. Post fire film was obtained and the needle was noted to be in the correct location. 13 core biopsy specimens were obtained from the 9 to 3 o'clock position. Radiograph of the specimen revealed the calcifications of concern were sampled. A secure danelle Top-Hat clip was placed. Radiograph revealed this to be in the correct location. The patient tolerated the procedure in stable condition. The specimen was sent to pathology. The patient will follow up with Dr. Rivas next week. LADI
== END ==
LOC: RADMAMWWP 06:57
PROVIDERS: ATTEND Surgery
DX: N60.82 Other benign mammary dysplasias of left breast (principal); N62 Hypertrophy of breast; I12.9 Hypertensive chronic kidney disease with stage 1 through stage 4 chronic kidney disease, or unspecified chronic kidney disease; N18.31 Chronic kidney disease, stage 3a; E78.5 Hyperlipidemia, unspecified; M19.90 Unspecified osteoarthritis, unspecified site; Z80.3 Family history of malignant neoplasm of breast; Z80.0 Family history of malignant neoplasm of digestive organs; Z80.8 Family history of malignant neoplasm of other organs or systems; Z98.1 Arthrodesis status; Z98.41 Cataract extraction status, right eye; Z98.42 Cataract extraction status, left eye; Z86.59 Personal history of other mental and behavioral disorders; Z79.899 Other long term (current) drug therapy; Z79.810 Long term (current) use of selective estrogen receptor modulators (SERMs); Z79.83 Long term (current) use of bisphosphonates; Z79.811 Long term (current) use of aromatase inhibitors; Z79.02 Long term (current) use of antithrombotics/antiplatelets; Z79.2 Long term (current) use of antibiotics
CPT/HCPCS: 88305; 19081; A4648

== ENCOUNTER → 2022-06-23 | Outpatient (CLI) | payer MEDICARE ==
[2022-06-23 07:39] VITALS: BP 142/86; PULSE 73; RESP 16; TEMP 98.4
--- NOTE | 2022-06-23 08:34 | P.PCN ---
Date of Procedure: 06/23/22 Preoperative Diagnosis: Microcalcifications of concern left breast lower midportion Postoperative Diagnosis: Same Procedure(s) Performed: Stereotactic core biopsy left breast lower midportion/CC from below approach utilized Anesthesia: local Surgeon: Ana Garcia Pathology: other (Breast tissue with microcalcifications and specimen) Condition: stable Disposition: same day Indications for Procedure: Abnormal microcalcifications of concern left breast lower midportion Operative Findings: Radiographic specimen reveals microcalcifications of concern Description of Procedure: The patient is a 71-year-old white female who underwent a routine screening mammogram was noted to have coarse good microcalcifications left breast 5 o'clock position and stereotactic core biopsy was recommended. Risks and benefits of the procedure were discussed with the patient as well as alternatives such as watchful waiting or resection in the operating room which were not recommended. The patient wished to proceed. The patient was brought to the stereotactic core biopsy room after physical examination. She was positioned prone on the lo-rad table. A CC from below approach was utilized. A wood floor refinisher film was obtained and the area of concern was identified. The lesion was targeted. The breast was prepped using Betadine. 20 mL of 1% lidocaine were used to anesthetize the area of concern. A 9-gauge vacuum-assisted core rotating biopsy needle was driven to the correct coordinates. A prefire film was obtained. The needle was noted to be in the correct location. The needle was fired. Post fire film was obtained and the needle was noted to be in the correct location. 13 core biopsy specimens were obtained from the 9 to 3 o'clock position. Radiograph of the specimen revealed the calcifications of concern were sampled. A secure danelle Top-Hat clip was placed. Radiograph revealed this to be in the correct location. The patient tolerated the procedure in stable condition. The specimen was sent to pathology. The patient will follow up with Dr. Rivas next week.
== END | disposition home or self-care (01) ==
LOC: WWCWWP 07:00
PROVIDERS: ATTEND Surgery
DX: Z53.9 Procedure and treatment not carried out, unspecified reason (principal)

== ENCOUNTER → 2022-06-30 | Outpatient (CLI) | payer MEDICARE ==
--- NOTE | 2022-06-30 12:06 | P.PN ---
Subjective Progress Note Date: 06/30/22 Principal diagnosis: fibrocystic breast changes Mallorie is a 71 year old white female satus distal left breast stereotactic core biopsy on [id number]. 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 This was felt to be benign specific. She tolerated the procedure without difficulty. Objective - Constitutional General appearance: Present: cooperative - EENT ENT: Present: hearing grossly normal - Neck Neck: Present: normal ROM - Integumentary Integumentary Comment(s): Biopsy site no evidence of infection, mild ecchymosis no hematoma Assessment and Plan Assessment: Depression: Patient status post left breast or tactic core biopsy, benign and concordant fibroadenomatoid hyperplasia with calcifications and Bactrim fibrocystic changes Plan: Left breast mammogram in 6 months with physician exam at that time CC: Dr. Jang
[2022-06-30 12:47] VITALS: BP 149/92; PULSE 63; RESP 17; TEMP 98.3
== END | disposition home or self-care (01) ==
LOC: WWCWWP 11:32
PROVIDERS: ATTEND Surgery
DX: Z53.9 Procedure and treatment not carried out, unspecified reason (principal)

== ENCOUNTER → 2022-07-06 | Outpatient (CLI) | payer MEDICARE ==
[2022-07-06 11:34] LABS: HCT 40.9 % (37.2-46.3); HGB 13.8 g/dL (12.0-15.0); MCHC 33.7 g/dL (32.0-37.0); MCV 94.9 fL (80.0-97.0); Mean Platelet Volume 10.1 fL (9.5-12.2); NRBC Per 100 WBC 0 /100 WBCS (0.0-0.0); Platelet Count 243 X 10*3/uL (140-440); RBC 4.31 X 10*6/uL (4.10-5.20); RDW 13.6 % (11.5-14.5)
[2022-07-06 11:52] LABS: % Iron Saturation 23.52 (12.00-45.00); African American GFR (CKD) 48.1 (60.0-200.0); Albumin 4.1 g/dL (3.8-4.9); Albumin/Globulin Ratio 1.86 (1.60-3.17); Anion Gap 10.7 mmol/L (10.00-18.00); BUN/Creat Ratio 12.69 Ratio (12.00-20.00); Blood Urea Nitrogen 16.5 mg/dL (9.0-27.0); Calcium 9.2 mg/dL (8.7-10.3); Carbon Dioxide 24.3 mmol/L (20.0-27.5); Globulin 2.2 g/dL (1.6-3.3); Non-African American GFR(CKD) 41.5 (60.0-200.0); Phosphorus 2.9 mg/dL (2.4-5.1); Potassium 3.9 mmol/L (3.5-5.5); Total Bilirubin 0.7 mg/dL (0.30-1.20); Total Protein 6.3 g/dL (6.2-8.2); Uric Acid 5.5 mg/dL (2.9-7.7)
[2022-07-06 13:21] LABS: Appearance,Urine Clear (Clear); Bilirubin,Urine Negative (Negative); Blood,Urine Negative (Negative); Color,Urine Yellow (Yellow); Ketones,Urine Negative (Negative); Nitrite,Urine Negative (Negative); Specific Gravity,Urine 1.011 (1.001-1.030); Urobilinogen,Urine 0.2 (0.2,1.0)
[2022-07-06 13:25] LABS: Bacteria,Urine None Seen /HPF (None Seen)
== END | disposition home or self-care (01) ==
LOC: LABWHC1 08:04
PROVIDERS: ATTEND Internal Medicine Nephrology
DX: N25.81 Secondary hyperparathyroidism of renal origin (principal); N18.31 Chronic kidney disease, stage 3a; D63.1 Anemia in chronic kidney disease; N39.0 Urinary tract infection, site not specified; E55.9 Vitamin D deficiency, unspecified; M10.9 Gout, unspecified
CPT/HCPCS: 36415; 80053; 81001; 82306; 82728; 83540; 83550; 83735; 83970; 84100; 84550; 85027

== ENCOUNTER → 2022-11-30 | Outpatient (CLI) | payer MEDICARE ==
--- NOTE | 2022-11-30 13:45 | MM ---
Reason for Exam: Follow-up at short interval from prior study. Last screening mammogram was performed 6 month(s) ago. Patient History: Menarche at age 14. First Full-Term at age 28. Postmenopausal. Previous Hyperplasia w/o Atypia at age 71. Patient used Estrogen for 2 years. Patient used Hormonal Contraceptives for 5 years. 06/23/2022, Benign MG stereo VAD BX LT on the left side. Paternal grandmother had breast cancer, age 85. Maternal grandmother had breast cancer, age 60. Risk Values: Whitney 5 year model risk: 2.3%. NCI Lifetime model risk: 6.3%. Prior Study Comparison: 05/12/2021 Bilateral Screening Mammogram, [facility]. 05/13/2022 Bilateral MG 3D screening mammo w/cad, [facility]. 05/19/2022 Left MG 3D work up w/cad LT, [facility]. Tissue Density: Left: The breast tissue is heterogeneously dense. This may lower the sensitivity of mammography. Findings: Analyzed By CAD. Postbiopsy changes left breast with microclip marker in place. No evidence for mass or distortion. Couple of stable benign calcified lesions present. Overall Assessment: Benign, BI-RAD 2 Management: Screening Mammogram of both breasts in 6 months. A clinical breast exam by your physician is recommended on an annual basis and results should be correlated with mammographic findings. This exam should not preclude additional follow-up of suspicious palpable abnormalities. Results were given to the patient verbally at the time of exam. Electronically signed and approved by: Rafael Borja M.D. Radiologis
== END | disposition home or self-care (01) ==
LOC: RADMAMWWP 12:54
PROVIDERS: ATTEND Surgery
DX: R92.8 Other abnormal and inconclusive findings on diagnostic imaging of breast (principal); Z78.0 Asymptomatic menopausal state; Z80.3 Family history of malignant neoplasm of breast; Z98.890 Other specified postprocedural states
CPT/HCPCS: 77065; G0279; 77061

== ENCOUNTER → 2022-12-01 | Outpatient (CLI) | payer MEDICARE ==
[2022-12-01 12:19] VITALS: BP 158/79; PULSE 60; RESP 18; TEMP 98.2
--- NOTE | 2022-12-01 12:28 | P.PN ---
Subjective Progress Note Date: 12/01/22 Principal diagnosis: fibrocystic breast changes Mallorie had a routine screening mammogram performed on 9221. The mammogram revealed calcifications of concern in the left breast. This was confirmed on a left breast diagnostic mammogram of 9821. Stereotactic core biopsy was recommended. The patient did not feel any lumps masses or nodules of concern in either breast. She had not had any recent trauma or infection in her breast. She had not had any surgery or biopsies of her breast in the past. This was found on a routine screening mammogram. She had a left breast stero biopsy on 06-23-22 which was benign. She had a left breast mammogram on 11-30-22 which was BIRAD 2. Bilateral screening in 6 months recommended. He has not complained of any new lumps masses or nodules of concern in either breast. Caffiene: 2 cups/day nicotine: none chocolate: occasional BCP: < 5 years in early twenties Family History: mother: colon cancer maternal grandmother: breast cancer at 85 maternal grandfather: brain cancer father: colon cancer paternal grandmother: breast cancer Hormonal History: menarche: 14 , age at first : 28, breast fed: no menopause: 50 hormones: 2 years; at the time of menopause; Premarin cream one time a month Surgical history: midfoot fusion left foot and bunyon cataract surgery arthoscopy on both knees Medical History: chronic kidney disease HTN ostepenia COVID Oct 2022 Social History: Nicotine: Negative Alcohol: Negative Drugs: Negative - Constitutional Constitutional: Denies chills, Denies fever - EENT Eyes: bilateral as per HPI, denies blurred vision, denies pain Ears: bilateral: decreased hearing (hearing aids), tinnitus Ears, nose, mouth and throat: Denies headache, Denies sore throat - Breasts Breasts: bilateral: as per HPI - Cardiovascular Cardiovascular: Denies chest pain, Denies shortness of breath - Respiratory Respiratory: Denies cough - Gastrointestinal Comment: last colonoscopy 5 years ago Gastrointestinal: Denies abdominal pain, Denies diarrhea, Denies nausea, Denies vomiting - Genitourinary (Female) Genitourinary: Denies dysuria, Denies hematuria - Menstruation Menstruation: Reports postmenopausal - Musculoskeletal Comment: arthritis in knees Musculoskeletal: Reports as per HPI, Denies myalgias - Integumentary Integumentary: Denies pruritus, Denies rash - Neurological Neurological: Denies numbness, Denies weakness - Psychiatric Psychiatric: Denies anxiety, Denies depression - Endocrine Endocrine: Denies fatigue, Denies weight change - Hematologic/Lymphatic Comment: none - Allergic/Immunologic Allergic/Immunologic: Reports seasonal allergies Past Medical History Past Medical History: GERD/Reflux, Hyperlipidemia, Hypertension, Osteoarthritis (OA), Renal Disease Additional Past Medical History / Comment(s): DDD NECK,ENVIRONMENTAL ALLERGIES, CKD STAGE 3-A. History of Any Multi-Drug Resistant Organisms: None Reported Past Surgical History: Orthopedic Surgery Additional Past Surgical History / Comment(s): arthroscopic hilda knees, LEFT BUNIONECTOMY AND MID FOOT FUSION WITH CLIPS AND PINS (08/2020), COLONOSCOPY. bilat Cataract surgery 2019, lens implants Past Anesthesia/Blood Transfusion Reactions: No Reported Reaction Past Psychological History: No Psychological Hx Reported Smoking Status: Never smoker Past Alcohol Use History: Occasional Past Drug Use History: None Reported - Past Family History Mother Family Medical History: Cancer Additional Family Medical History / Comment(s): colon cancer Father Family Medical History: Cancer Additional Family Medical History / Comment(s): colon cancer Medications and Allergies Home Medications Medication Instructions Recorded Confirmed Type Raloxifene [Evista] 60 mg PO DAILY 04/03/16 06/23/22 History Solifenacin Succinate [Vesicare] 10 mg PO DAILY 04/03/16 06/23/22 History Alendronate Sodium [Fosamax] 70 mg PO REYES 02/07/19 06/23/22 History Irbesartan/Hydrochlorothiazide 1 each PO HS 02/07/19 06/23/22 History [Irbesartan-Hctz 300-12.5 mg Tb] Simvastatin [Zocor] 20 mg PO HS 02/07/19 06/23/22 History carvediloL [Coreg] 3.125 mg PO BID 02/07/19 06/23/22 History tiZANidine [Zanaflex] 4 mg PO DAILY PRN 02/07/19 06/23/22 History Calcium Carbonate [Calcium] 600 mg PO DAILY 02/11/21 06/23/22 History Iron 45 mg PO DAILY 02/11/21 06/23/22 History Loratadine [Claritin] 10 mg PO DAILY 02/11/21 06/23/22 History Multivit-Min/Iron/Folic/Lutein 1 each PO DAILY 02/11/21 06/23/22 History [Centrum Silver Women Tablet] Omeprazole 20 mg PO DAILY 02/11/21 06/23/22 History Ubidecarenone [Co Q-10] 400 mg PO DAILY 02/11/21 06/23/22 History Acetaminophen [Tylenol Arthritis] 650 mg PO DAILY 05/20/22 06/23/22 History [place]-3/Dha/Epa/Fish Oil [Fish Oil 1 each PO DAILY 05/20/22 06/23/22 History 1,000 mg Softgel] Allergies Allergy/AdvReac Type Severity Reaction Status Date / Time No Known Allergies Allergy Verified 06/23/22 07:39 Objective - Vital Signs Vital signs: Vital Signs Temp 98.2 F 12/01/22 12:15 Pulse 60 12/01/22 12:15 Resp 18 12/01/22 12:15 BP 158/79 12/01/22 12:15 Pulse Ox 98 12/01/22 12:15 FiO2 Intake & Output 11/30/22 12/01/22 12/01/22 18:59 06:59 18:59 Weight 79.379 kg - Exam BMI: 30 - Constitutional General appearance: Present: cooperative - EENT Eyes: Present: EOMI ENT: Present: hearing grossly normal - Neck Neck: Present: normal ROM - Respiratory Respiratory: bilateral: CTA - Cardiovascular Rhythm: regular Heart sounds: normal: S1, S2 - Gastrointestinal General gastrointestinal: Present: soft - Integumentary Integumentary: Present: normal turgor - Musculoskeletal Musculoskeletal: Present: gait normal - Psychiatric Psychiatric: Present: A&O x's 3, appropriate affect, intact judgment & insight - Additional findings Additional findings: Breast Exam: BRA: 38C Inspection: Bilateral grade 2/3 ptosis Palpation: Right breast: Multi-positional exam fibrocystic changes no dominant masses or nodules of concern Right axilla: No adenopathy of concern Left breast: Multiple positional exam fibrocystic changes no dominant masses or nodules of concern Left axilla: No adenopathy of concern Assessment and Plan Assessment: Impression: Fibrocystic breast changes Whitney risk is 2.3% to 5 years we've discussed chemoprophylaxis and patient has declined at this time We have also discussed that her breasts are dense and at this time she is going to be followed with mammograms Plan: Bilateral mammogram 6 months with physician exam at that time Cc: Dr. Jang
== END ==
LOC: WWCWWP 11:25
PROVIDERS: ATTEND Surgery
DX: N60.12 Diffuse cystic mastopathy of left breast (principal); K21.9 Gastro-esophageal reflux disease without esophagitis; E78.5 Hyperlipidemia, unspecified; M19.90 Unspecified osteoarthritis, unspecified site; M85.80 Other specified disorders of bone density and structure, unspecified site; I12.9 Hypertensive chronic kidney disease with stage 1 through stage 4 chronic kidney disease, or unspecified chronic kidney disease; N18.31 Chronic kidney disease, stage 3a; Z80.0 Family history of malignant neoplasm of digestive organs; Z80.3 Family history of malignant neoplasm of breast; Z86.16 Personal history of COVID-19

== ENCOUNTER → 2023-01-09 | Outpatient (CLI) | payer MEDICARE ==
[2023-01-09 17:00] LABS: Basophils # (A) 0.05 X 10*3/uL (0.00-0.10); Basophils % (A) 0.6 %; Eosinophils # (A) 0.06 X 10*3/uL (0.04-0.35); Eosinophils % (A) 0.8 %; HCT 40.3 % (37.2-46.3); HGB 13.3 g/dL (12.0-15.0); Immature Grans, Automated 0.3 %; Lymphocytes # (A) 2.46 X 10*3/uL (0.90-5.00); Lymphocytes % (A) 30.9 %; MCV 96.9 fL (80.0-97.0); Mean Platelet Volume 10.7 fL (9.5-12.2); Monocytes # (A) 0.51 X 10*3/uL (0.20-1.00); Monocytes % (A) 6.4 %; NRBC Per 100 WBC 0 /100 WBCS (0.0-0.0); Neutrophils # (A) 4.85 X 10*3/uL (1.80-7.70); Platelet Count 214 X 10*3/uL (140-440); RBC 4.16 X 10*6/uL (4.10-5.20); RDW 13.5 % (11.5-14.5); WBC 7.95 X 10*3/uL (4.50-10.00)
[2023-01-09 17:21] LABS: % Iron Saturation 23.13 (12.00-45.00); African American GFR (CKD) 51.1 (60.0-200.0); Albumin 3.8 g/dL (3.8-4.9); Albumin/Globulin Ratio 1.76 (1.60-3.17); Anion Gap 10.9 mmol/L (10.00-18.00); BUN/Creat Ratio 12.68 Ratio (12.00-20.00); Blood Urea Nitrogen 15.6 mg/dL (9.0-27.0); Calcium 9.5 mg/dL (8.7-10.3); Carbon Dioxide 26.1 mmol/L (20.0-27.5); Globulin 2.2 g/dL (1.6-3.3); Magnesium 1.9 mg/dL (1.5-2.4); Non-African American GFR(CKD) 44.1 (60.0-200.0); Phosphorus 3.9 mg/dL (2.4-5.1); Potassium 4.1 mmol/L (3.5-5.5); Total Bilirubin 0.6 mg/dL (0.30-1.20)
[2023-01-09 22:46] LABS: Microalbumin Creatinine Ratio <30 mg/g Creat (0-30); Urine Creatinine 48.4 mg/dL (28.0-217.0)
[2023-01-10 08:57] LABS: Appearance,Urine Clear (Clear); Bilirubin,Urine Negative (Negative); Blood,Urine Negative (Negative); Color,Urine Yellow (Yellow); Ketones,Urine Negative (Negative); Nitrite,Urine Negative (Negative); Specific Gravity,Urine 1.007 (1.001-1.030); Urobilinogen,Urine 0.2 (0.2,1.0)
== END | disposition home or self-care (01) ==
LOC: LABWHC1 09:23
PROVIDERS: ATTEND Nurse Practitioner Family
DX: E55.9 Vitamin D deficiency, unspecified (principal); N39.0 Urinary tract infection, site not specified; N25.81 Secondary hyperparathyroidism of renal origin; M10.9 Gout, unspecified; N18.31 Chronic kidney disease, stage 3a; D63.1 Anemia in chronic kidney disease
CPT/HCPCS: 36415; 80053; 81003; 82043; 82306; 82570; 82728; 83540; 83550; 83735; 83970; 84100; 84550; 85025

== ENCOUNTER → 2023-03-27 | Outpatient (CLI) | payer MEDICARE ==
[2023-03-27 09:21] LABS: Partial Thromboplastin Time 23.5 sec (22.0-30.0); Prothrombin Time 10.2 sec (9.0-12.0)
[2023-03-27 11:57] LABS: Appearance,Urine Clear (Clear); Bilirubin,Urine Negative (Negative); Blood,Urine Negative (Negative); Color,Urine Yellow (Yellow); Ketones,Urine Negative (Negative); Nitrite,Urine Negative (Negative); PH, Urine 6.5; Urobilinogen,Urine 0.2 E.U./DL
[2023-03-27 12:01] LABS: HCT 40.8 % (37.2-46.3); HGB 13.8 d/dL (12.0-15.0); MCH 32.4 pg (27.0-32.0); MCHC 33.8 d/dL (32.0-37.0); MCV 95.8 FL (80.0-97.0); Mean Platelet Volume 10.8 FL (9.5-12.2); NRBC Per 100 WBC 0 X 10*3/uL (0.00-0.01); Platelet Count 202 X 10*3/uL (140-440); RBC 4.26 X 10*6/uL (4.10-5.20); RDW 13.2 % (11.5-14.5); WBC 8.18 X 10*3/uL (4.50-10.00)
[2023-03-27 16:11] LABS: ALT 21 U/L (8-44); AST 16 U/L (13-35); Albumin/Globulin Ratio 1.82 Ratio (1.60-3.17); Alkaline Phosphatase 64 U/L (41-126); BUN/Creat Ratio 14.77 Ratio (12.00-20.00); Blood Urea Nitrogen 19.2 mg/dL (9.0-27.0); Calcium 9.6 mg/dL (8.7-10.3); Chloride 103 mmol/L (96-109); Globulin 2.2 d/dL (1.6-3.3); Glucose 99 mg/dL (70-110); Sodium 140 mmol/L (135-145); Total Bilirubin 0.5 mg/dL (0.3-1.2); Total Protein 6.2 d/dL (6.2-8.2)
== END | disposition home or self-care (01) ==
LOC: LABPAT 08:19
PROVIDERS: ATTEND Orthopaedic Surgery
DX: Z01.812 Encounter for preprocedural laboratory examination (principal); M17.11 Unilateral primary osteoarthritis, right knee; R94.31 Abnormal electrocardiogram [ECG] [EKG]
CPT/HCPCS: 80053; 81003; 85027; 85610; 85730; 87070; 93005

== ENCOUNTER → 2023-04-07 | Outpatient (CLI) | payer MEDICARE ==
[~2023-04-07] MED LIST changes: -LACTATED RINGERS 1,000 ML IV SCH; -LIDOCAINE 1% (10MG/ML) FOR IV START INTRADERMA PRN; +REGADENOSON 0.4 MG/5 ML SYRINGE IV PRN
--- NOTE | 2023-04-07 12:30 | CA ---
Lexiscan Nuclear Stress Test Report Name: Mallorie Tuttle Exam Date: 04/07/2023 10:08 Exam Location: [place] Stress Ht (in): 64 Wt (lb): 180 BSA: 1.87 Ordering Phys: Alex Jang DO Referring Phys: Eric Magana MD Technologist: Mani Jimenez Age: 72 Gender: F : 1950 Procedure CPT: Indications: R94.31 ABNORMAL ELECTROCARDIOGRAM ICD-10 Codes: Patient History: Medications: Meds past 24 hrs: Pretest Chest Pain: STRESS TEST Lexiscan Protocol Exercise Duration (min:sec): 02:[address] Depressions (mm): Angina Score: Logan Score: Resting HR (bpm): 57 Peak HR (bpm): 94 Resting BP (mmHg): 157 / 82 Peak BP (mmHg): 153 / 79 MPHR: 149 Target HR: 127 % MPHR: 63 METS: 1.0 Total Dose: Peak Dose: Atropine: Double Product: 89351 BP Response: Stress Termination: PROTOCOL COMPLETE Stress Symptoms: NO SYMPTOMS Stress Summary: ECG ANALYSIS Resting ECG: Sinus rhythm. Normal conduction. No arrhythmias. Normal repolarization. Stress ECG: No ECG changes from baseline with Lexiscan infusion. CONCLUSIONS No ECG evidence of ischemia with Lexiscan infusion. Nuclear test results to follow. Dr. Damian Shultz MD (Electronically Signed) Final Date: 07 April 2023 12:29
--- NOTE | 2023-04-07 13:39 | NM ---
EXAMINATION TYPE: NM stress lexiscan cardiolite DATE OF EXAM: 04/07/2023 COMPARISON: NONE CLINICAL INDICATION: Female, 72 years old with history of R94.31 ABNORMAL ELECTROCARDIOGRAM; TECHNIQUE: After the intravenous administration of 9.6 mCi Tc 99m Sestamibi - Cardiolite resting SPE CT images acquired 45 minutes post injection. The patient received 0.4mg Lexiscan, 24.7 mCi Tc 99m Sestamibi - Stress images obtained [address] injection FINDINGS: Review of stress and rest SPECT images demonstrates fixed defect involving the cardiac apex without d efinite reversible ischemia suggested in this time. Gated analysis shows normal wall motion with an e stimated left ventricular ejection fraction of 70 %. IMPRESSION: No scintigraphic evidence for reversible ischemia.
== END | disposition home or self-care (01) ==
LOC: RADNMMAIN 07:49
PROVIDERS: ATTEND Family Medicine
DX: R94.31 Abnormal electrocardiogram [ECG] [EKG] (principal)
CPT/HCPCS: 93017; 78452; A9500; J2785

== ENCOUNTER 2023-04-14 05:38 | Day surgery (SDC) | payer MEDICARE ==
[2023-04-05 15:36] VITALS: BMI 30.5
[2023-04-14] MEDS ORDERED: LIDOCAINE 1% (10MG/ML) FOR IV START INTRADERMA PRN (05:59)
[2023-04-14] MEDS ORDERED: ONDANSETRON 4 MG/2 ML VIAL IVP ONE (05:59)
[2023-04-14] MEDS ORDERED: MIDAZOLAM 2 MG/2 ML VIAL IV PRN (05:59)
[2023-04-14] MEDS ORDERED: DEXAMETHASONE SOD PHOSPHATE 4 MG/ML 1 ML VIAL IV ONE (05:59)
[2023-04-14] MEDS ORDERED: ACETAMINOPHEN TAB 500 MG TAB PO PRN (06:00)
[2023-04-14] MEDS ORDERED: KETOROLAC 15 MG/ML 1 ML VIAL IVP PRN (06:00)
[2023-04-14] MEDS ORDERED: oxyCODONE ER 10 MG TAB.ER.12H PO PRN (06:00)
[2023-04-14] MEDS ORDERED: ONDANSETRON 4 MG/2 ML VIAL IVP PRN ×2 (06:00→09:56)
[2023-04-14] MEDS ORDERED: DOCUSATE 100 MG CAP PO PRN (06:00)
[2023-04-14] MEDS ORDERED: TRANEXAMIC 1,000 MG/100ML-NACL 1,000 MG in SALINE 1 100ML.BAG IVPB PRN (06:00)
[2023-04-14] MEDS ORDERED: TRANEXAMIC 1,000 MG/100ML-NACL 1,000 MG in SALINE 1 100ML.BAG IV PRN (06:00)
[2023-04-14] MEDS ORDERED: DEXAMETHASONE SOD PHOSPHATE 10 MG/ML 1 ML VIAL IV PRN (06:00)
[2023-04-14] MEDS ORDERED: FAMOTIDINE 20 MG/2 ML VIAL IVP PRN (06:00)
[2023-04-14] MEDS: LACTATED RINGERS 1,000 ML IV SCH ×2 (06:09→15:53)
[2023-04-14] MEDS ORDERED: fentaNYL (PF) 50 MCG/ML 2 ML AMP IVP PRN (07:00)
[2023-04-14] MEDS ORDERED: HYDROmorphone 0.5 MG/0.5 ML SYRINGE IVP PRN ×4 (07:00→09:56)
[2023-04-14] MEDS ORDERED: SUCCINYLCHOLINE CHLORIDE 200 MG/10 ML VIAL IV ONE (07:31)
[2023-04-14] MEDS ORDERED: PHENYLEPHRINE-0.9% NACL SYG 1,000 MCG/10 ML SYRINGE ONE (07:31)
[2023-04-14] MEDS ORDERED: ROCURONIUM 10 MG/ML (5 ML VIAL) IV ONE (07:31)
[2023-04-14] MEDS ORDERED: SODIUM CHLORIDE 0.9% (PF) 10 ML VIAL ONE (07:31)
[2023-04-14] MEDS ORDERED: GLYCOPYRROLATE 0.2 MG/ML 2 ML VIAL ONE (07:31)
[2023-04-14] MEDS ORDERED: NEOSTIGMINE 1 MG/ML 10 ML VIAL ONE (07:31)
[2023-04-14] MEDS ORDERED: WATER FOR INJECTION, STERILE 10 ML VIAL IV ONE (07:31)
[2023-04-14] MEDS ORDERED: ePHEDrine 50 MG/ML 1 ML VIAL ONE (07:31)
[2023-04-14] MEDS ORDERED: ROPIVACAINE 5 MG/ML 30 ML VIAL ONE (07:31)
[2023-04-14] MEDS ORDERED: MIDAZOLAM 2 MG/2 ML VIAL ONE (07:31)
[2023-04-14] MEDS ORDERED: DEXAMETHASONE SOD PHOSPHATE 4 MG/ML 1 ML VIAL ONE (07:31)
[2023-04-14] MEDS ORDERED: TRANEXAMIC 1,000 MG/100ML-NACL PREMIX BAG ONE (07:31)
[2023-04-14] MEDS ORDERED: LIDOCAINE 2% INJ 20 MG/ML (2 ML VIAL) ONE (07:31)
[2023-04-14] MEDS ORDERED: PROPOFOL 10 MG/ML 20 ML VIAL IV ONE (07:31)
[2023-04-14] MEDS ORDERED: fentaNYL (PF) 50 MCG/ML 2 ML AMP ONE (07:31)
[2023-04-14] MEDS: ROPIVACAINE/EPI/CLONIDINE/KET 50 ML SYRINGE MISCELLANE PRN ×2 (08:11→08:33)
[2023-04-14] MEDS ORDERED: LACTATED RINGERS 1,000 ML IV ONE (08:34)
--- NOTE | 2023-04-14 09:55 | P.OP ---
Date of Procedure: 04/14/23 Preoperative Diagnosis: 1. Severe right knee osteoarthritis 2. BMI 32 3. Chronic renal insufficiency Postoperative Diagnosis: Same Procedure(s) Performed: Right total knee arthroplasty Implants: 1. Pam Triathlon CR Femur Size #4 2. [place] Triathlon [place] Tibial Base Size #3 3. [place] Triathlon CS poly Size #3, 9-mm 4. Pam Triathlon all poly patella, Size #29 Anesthesia: YAZA, regional Surgeon: Eric Magana [place] [facility] #1: Dakota Figueroa Estimated Blood Loss (ml): 100 IV fluids (ml): 1,000 Pathology: none sent Condition: stable Disposition: PACU Indications for Procedure: I met with the patient preoperatively in the office setting and discussed treatment of their symptomatic knee arthritis. They failed a long course of nonsurgical treatment and elected to proceed with an elective total knee replacement. I discussed the potential risks and complications at length and gave them ample time to ask questions. Risks discussed included: risks from anesthesia, superficial site surgical infection, acute and/or chronic periprosthetic joint infection, delayed wound healing, drainage, wound necrosis, instability, stiffness, stiffness requiring manipulation and/or revision s urgery, damage to local blood vessels or nerves, aseptic loosening of the implants, extensor mechanism issues including disruption, patellar maltracking, avascular necrosis etc., continued or worsened knee pain, generalized dissatisfaction with surgical outcome, need for revision surgery, an inability to regain preinjury level of function, DVT, PE, other medical complications, and possibly loss of life or limb. The patient voiced their understanding that while these are the most common complications other less common complications are possible. They provided both their verbal and written consent to go forward with surgery. Operative Findings: Severe tricompartmental knee arthritis Description of Procedure: The patient was identified in preoperative holding and the correct operative extremity was verified and marked with a marker. I reviewed the consent form with the patient at length. All of their questions were answered. The patient was given a block by anesthesia. They were then brought back to the operating room. They were transferred onto the operating room table where a general anesthetic, preoperative antibiotics, and tranexamic acid were administered by anesthesia. A tourniquet was applied to the proximal aspect of the operative extremity. The contralateral extremity was padded under the heel and secured to the operating room table with a nonsterile blue towel and tape. The ipsilateral arm was carefully draped across the patient's chest and secured with a pillow and foam. A post was applied over the lateral aspect of the ipsilateral thigh and a bolster was placed under the ipsilateral foot. I verified that the operative extremity was stable and the knee was flexed to 90. The operative extremity was then placed in a leg canchola, nonsterile drapes were applied, and the extremity was prepped and draped sterilely in the standard sterile fashion. Prior to starting surgery timeout was performed identifying the correct patient, operative extremity, and procedure. The leg was then elevated, exsanguinated with an Esmarch bandage, and the tourniquet was inflated. An anterior midline incision was made sharply with a scalpel. Once I had dissected deep to the superficial fascial layer medial and lateral flaps were elevated. A medial parapatellar arthrotomy was created. Upon opening the knee joint there were diffuse arthritic changes in all 3 compartments. The anterior horn of the medial meniscus were sharply released and a medial release was performed around the posterior medial corner of the knee to facilitate retractor placement. The fat pad was excised with electrocautery. The patella was found to be severely arthritic and a provisional cut was made with a sagittal saw to facilitate mobilization of the extensor mechanism during the procedure. Remnants of the ACL and PCL were then excised from the notch. 4 mm pins were then placed within the incision in the medial distal femur and proximal tibia. Arrays were applied to the pins and I verified they were completely tightened. The knee was then registered with the RapidMiner robot and manipulations in implant position were made to balance the knee and opitmize implant position. Using the Panda robotic saw all cuts were made in accordance with our plan. After all bony fragments had been removed the cuts were verified with the planar probe. The tibia was then subluxed forward and sized. The knee was brought into flexion and a lamina protohistorian was placed to allow removal of the meniscal remnants both medially and laterally as well as posterior osteophytes. Local anesthetic was then infiltrated around the joint capsule. Trial implants were then placed within the knee. Range of motion and collateral ligament tension was then evaluated. Adjustments in implant size and position were then made accordingly. Once the knee was felt to be appropriately balanced the Panda pins were removed. The patella was then recut, sized, and punched. A trial patellar button was then placed. With the trial components in place, the patella tracked midline. The femur was then drilled and the trial component removed. The trial tibial component was then appropriately rotated, pinned, and prepared for the keel. All trial components were then removed from the knee. The knee was thoroughly irrigated with pulsatile lavage. Cement was prepared via vacuum mixing in a bowl on the back table. I then hand pressurized cement into the femur and tibia and placed the implants beginning with the tibial base tray and poly liner, fem oral component, and finally the patellar button. All extruded cement was removed including from the pin sites. Once the cement had hardened the knee was evaluated one final time with the final polyethylene liner in place. The knee had full extension and flexion and felt stable to varus and valgus stress throughout the arc of motion. The tourniquet was released and with the tourniquet down the patella tracked midline. All bleeders were controlled with electrocautery. The knee was then soaked for 3 minutes with a dilute Betadine soak. The knee was thoroughly irrigated using 3 L of sterile saline and pulsatile lavage. A deep drain was placed. The extensor mechanism was then reapproximated using pop off Vicryl sutures followed by a running barbed suture. The knee was then closed in layers with a 0 strata fix for the deep fascial layer, 2-0 strata fix for the superficial subcutaneous layer and Monocryl and Steri-Strips for the skin. A sterile dressing and drain sponge were applied. I verified that all instrument, sponge, and sharp counts were correct. The patient was then transferred off the operating room table, extubated, and brought to recovery having tolerated the procedure well. Dakota Figueroa PA-C was required as a skilled delivery driver assistant due to the complexity of the procedure for patient positioning, draping, retraction, placement of hardware, and closure of wound. PLAN: The patient can weight-bear as tolerated on the operative extremity. DVT prophylaxis with aspirin 81 mg twice a day based on preoperative risk stratification. Follow-up in the office in 2 weeks for wound check and x-rays of the knee including an AP and lateral.
[2023-04-14] MEDS ORDERED: hydrOXYzine pamoate 25 MG CAP PO PRN (09:56)
[2023-04-14] MEDS ORDERED: NALOXONE 0.4 MG/ML 1 ML VIAL IV PRN (09:56)
[2023-04-14] MEDS ORDERED: HYDROcodone/APAP 5-325MG 1 EACH TAB PO PRN (09:56)
--- NOTE | 2023-04-14 10:27 | XR ---
EXAMINATION TYPE: XR knee limited RT DATE OF EXAM: 04/14/2023 10:19 AM INDICATION: Patient age:Female; 72 years old; Reason for study: Evaluation for Postop abnormality and alignment; PHH. COMPARISON: CT right knee 03/29/2023 TECHNIQUE: The Right knee(s) was examined in frontal and crosstable lateral projections. FINDINGS: Postsurgical changes from total right knee arthroplasty with distal femoral and proximal tibial components. Hardware appears intact with appropriate alignment. There is associated soft tissu e gas and edema. Surgical drain is identified with tip posterior to the patella. No acute fracture or dislocation. IMPRESSION: Postsurgical changes of total right knee arthroplasty. Hardware appears intact with appropriate align ment.
[2023-04-14 20:03] VITALS: RESP 16
[2023-04-14] MEDS ORDERED: SENNOSIDES-DOCUSATE SODIUM 1 EACH TAB PO SCH (21:00)
[2023-04-14] MEDS ORDERED: LOSARTAN 50 MG TAB PO SCH (22:45)
[2023-04-14] MEDS ORDERED: LOSARTAN-HCTZ 50-12.5 MG 1 EACH TAB PO SCH (22:45)
[2023-04-14] MEDS ORDERED: ATORVASTATIN 10 MG TAB PO SCH (22:45)
[2023-04-14] MEDS: ASPIRIN 81 MG PO SCH (23:16)
[2023-04-14] MEDS: FAMOTIDINE 20 MG TAB PO SCH (23:16)
[2023-04-14] MEDS: carvediloL 6.25 MG TAB PO SCH (23:17)
[2023-04-14] MEDS: HYDROcodone/APAP 5-325MG 1 EACH TAB PO PRN (23:17)
[2023-04-15] MEDS: LACTATED RINGERS 1,000 ML IV SCH ×3 (05:16→07:23)
[2023-04-15] MEDS: HYDROcodone/APAP 5-325MG 1 EACH TAB PO PRN (06:37)
[2023-04-15] MEDS: carvediloL 6.25 MG TAB PO SCH (06:37)
[2023-04-15 08:20] VITALS: BP 159/79; PULSE 78; TEMP 98.5
[2023-04-15] MEDS: FAMOTIDINE 20 MG TAB PO SCH (08:29)
[2023-04-15] MEDS: ASPIRIN 81 MG PO SCH (08:29)
[2023-04-15] MEDS ORDERED: TROSPIUM CHLORIDE 20 MG TABLET PO SCH (09:00)
[2023-04-15] MEDS ORDERED: RALOXIFENE 60 MG TAB PO SCH (09:00)
[2023-04-15] MEDS ORDERED: LORATADINE 10 MG TAB PO SCH (09:00)
[2023-04-15 09:09] LABS: Basophils # (A) 0.02 X 10*3/uL (0.00-0.10); Basophils % (A) 0.1 %; Eosinophils # (A) 0 X 10*3/uL (0.04-0.35); Eosinophils % (A) 0 %; HCT 32.8 % (37.2-46.3); HGB 10.9 d/dL (12.0-15.0); Lymphocytes # (A) 1.89 X 10*3/uL (0.90-5.00); Lymphocytes % (A) 10.1 %; MCH 32.2 pg (27.0-32.0); MCHC 33.2 d/dL (32.0-37.0); Mean Platelet Volume 11.1 FL (9.5-12.2); Monocytes # (A) 1.19 X 10*3/uL (0.20-1.00); Monocytes % (A) 6.4 %; NRBC Per 100 WBC 0 X 10*3/uL (0.00-0.01); Neutrophils # (A) 15.42 X 10*3/uL (1.80-7.70); Neutrophils % (A) 82.6 %; Platelet Count 184 X 10*3/uL (140-440); RBC 3.38 X 10*6/uL (4.10-5.20); RDW 13.5 % (11.5-14.5); WBC 18.67 X 10*3/uL (4.50-10.00)
--- NOTE | 2023-04-15 09:51 | P.DS ---
Providers Date of admission: 04/14/2023 Expected date of discharge: 04/15/23 Attending physician: Eric Magana Consults: 04/14/23 09:56 Consult Physician Routine Consulting Provider: Vikas Cedeño Consult Reason/Comments: medical management Do you want consulting provider notified?: Yes Primary care physician: [facility] Course: The patient is a very pleasant. Healthy 72-year-old female who underwent an uncomplicated right total knee replacement on 04/14/2023. She was admitted to the orthopedic floor under my care. She was transitioned from IV to oral pain medications. She worked with physical therapy and did well. She was seen and evaluated on postoperative day #1. Her Hemovac drain was pulled. She was doing one and cleared for discharge home. Plan - Discharge Summary Discharge Rx Participant: Yes New Discharge Prescriptions: No Action Raloxifene [Evista] 60 mg PO DAILY Solifenacin Succinate [Vesicare] 10 mg PO DAILY tiZANidine [Zanaflex] 4 mg PO DAILY PRN PRN Reason: Pain Simvastatin [Zocor] 20 mg PO HS Alendronate Sodium [Fosamax] 70 mg PO REYES Irbesartan/Hydrochlorothiazide [Irbesartan-Hctz 300-12.5 mg Tb] 1 each PO HS carvediloL [Coreg] 6.25 mg PO BID [place]-3/Dha/Epa/Fish Oil [Fish Oil 1,000 mg Softgel] 1 each PO DAILY Acetaminophen [Tylenol Arthritis] 650 mg PO DIRECTED PRN PRN Reason: Pain Iron 27 mg PO Q48H Multivit-Min/Iron/Folic/Lutein [Centrum Silver Women Tablet] 1 each PO DAILY Famotidine 40 mg PO DAILY Ubidecarenone [Co Q-10] 200 mg PO DAILY Calcium Carbonate [Calcium] 666 mg PO CONTINUOUS Fexofenadine HCl [Mariann Allergy] 180 mg PO DAILY Discharge Medication List Raloxifene [Evista] 60 mg PO DAILY 04/03/16 [History] Solifenacin Succinate [Vesicare] 10 mg PO DAILY 04/03/16 [History] Alendronate Sodium [Fosamax] 70 mg PO REYES 02/07/19 [History] Irbesartan/Hydrochlorothiazide [Irbesartan-Hctz 300-12.5 mg Tb] 1 each PO HS 02/07/19 [History] Simvastatin [Zocor] 20 mg PO HS 02/07/19 [History] carvediloL [Coreg] 6.25 mg PO BID 02/07/19 [History] tiZANidine [Zanaflex] 4 mg PO DAILY PRN 02/07/19 [History] Multivit-Min/Iron/Folic/Lutein [Centrum Silver Women Tablet] 1 each PO DAILY 02/11/21 [History] Acetaminophen [Tylenol Arthritis] 650 mg PO DIRECTED PRN 05/20/22 [History] [place]-3/Dha/Epa/Fish Oil [Fish Oil 1,000 mg Softgel] 1 each PO DAILY 05/20/22 [History] Famotidine 40 mg PO DAILY 12/01/22 [History] Calcium Carbonate [Calcium] 666 mg PO CONTINUOUS 04/05/23 [History] Fexofenadine HCl [Mariann Allergy] 180 mg PO DAILY 04/05/23 [History] Iron 27 mg PO Q48H 04/05/23 [History] Ubidecarenone [Co Q-10] 200 mg PO DAILY 04/05/23 [History]
[2023-04-15] MEDS ORDERED: HYDROcodone/APAP 5-325MG 1 EACH TAB PO STA (10:16)
--- NOTE | 2023-04-15 10:44 | P.DS ---
Providers Expected date of discharge: 04/15/23 Attending physician: Eric Magana Consults: 04/14/23 09:56 Consult Physician Routine Consulting Provider: Vikas Cedeño Consult Reason/Comments: medical management Do you want consulting provider notified?: Yes Primary care physician: Alex Su[facility]ail [facility] Course: This is a 72-year-old female who was last seen with complaint of continued ri ght knee pain. The patient has a known history of degenerative arthritis of the right knee and presents to discuss surgical options. After discussion and consideration the patient elects to proceed with total right knee arthroplasty. The patient is seen preoperatively by her PCP, nephrology and cleared for surgery. The patient is admitted to [facility] for total right knee art hroplasty. The procedures performed without complication or sequelae. Patient is doing well postoperatively. Vital signs are stable at discharge. Labs are stable at discharge. The patient is ambulating well with walker with minimal assistance. Patient is examined bedside this morning with Dr. Magana. She states pain in the right knee is well-controlled. She is comfortable returning home today. On examination, the patient is sitting up in bed in no apparent distress. She is alert and oriented 3. On inspection of the right knee, there is a clean, dry, intact surgical dressing in place. Right lower extrremity warm and well- perfused. Motor and sensory function is intact right lower extremity. Hemovac drain pulled during exam. The patient is discharged to home on postop day #1 pending medical clearance. Please see orders and refer to the [facility] rec for accurate list of medications. Plan - Discharge Summary Discharge Rx Participant: Yes New Discharge Prescriptions: New Aspirin 81 mg PO BID 30 Days #60 tab Omeprazole 40 mg PO DAILY 30 Days #30 cap Docusate [Colace] 100 mg PO BID #60 capsule HYDROcodone/APAP 5-325MG [[place] 5-325] 1 - 2 tab PO Q6HR PRN 7 Days #40 tab PRN Reason: Pain No Action Raloxifene [Evista] 60 mg PO DAILY Solifenacin Succinate [Vesicare] 10 mg PO DAILY tiZANidine [Zanaflex] 4 mg PO DAILY PRN PRN Reason: Pain Simvastatin [Zocor] 20 mg PO HS Alendronate Sodium [Fosamax] 70 mg PO REYES Irbesartan/Hydrochlorothiazide [Irbesartan-Hctz 300-12.5 mg Tb] 1 each PO HS carvediloL [Coreg] 6.25 mg PO BID [place]-3/Dha/Epa/Fish Oil [Fish Oil 1,000 mg Softgel] 1 each PO DAILY Acetaminophen [Tylenol Arthritis] 650 mg PO DIRECTED PRN PRN Reason: Pain Iron 27 mg PO Q48H Multivit-Min/Iron/Folic/Lutein [Centrum Silver Women Tablet] 1 each PO DAILY Famotidine 40 mg PO DAILY Ubidecarenone [Co Q-10] 200 mg PO DAILY Calcium Carbonate [Calcium] 666 mg PO CONTINUOUS Fexofenadine HCl [Mariann Allergy] 180 mg PO DAILY Discharge Medication List Raloxifene [Evista] 60 mg PO DAILY 04/03/16 [History] Solifenacin Succinate [Vesicare] 10 mg PO DAILY 04/03/16 [History] Alendronate Sodium [Fosamax] 70 mg PO REYES 02/07/19 [History] Irbesartan/Hydrochlorothiazide [Irbesartan-Hctz 300-12.5 mg Tb] 1 each PO HS 02/07/19 [History] Simvastatin [Zocor] 20 mg PO HS 02/07/19 [History] carvediloL [Coreg] 6.25 mg PO BID 02/07/19 [History] tiZANidine [Zanaflex] 4 mg PO DAILY PRN 02/07/19 [History] Multivit-Min/Iron/Folic/Lutein [Centrum Silver Women Tablet] 1 each PO DAILY 02/11/21 [History] Acetaminophen [Tylenol Arthritis] 650 mg PO DIRECTED PRN 05/20/22 [History] [place]-3/Dha/Epa/Fish Oil [Fish Oil 1,000 mg Softgel] 1 each PO DAILY 05/20/22 [History] Famotidine 40 mg PO DAILY 12/01/22 [History] Calcium Carbonate [Calcium] 666 mg PO CONTINUOUS 04/05/23 [History] Fexofenadine HCl [Mariann Allergy] 180 mg PO DAILY 04/05/23 [History] Iron 27 mg PO Q48H 04/05/23 [History] Ubidecarenone [Co Q-10] 200 mg PO DAILY 04/05/23 [History] Aspirin 81 mg PO BID 30 Days #60 tab 04/15/23 [Rx] Docusate [Colace] 100 mg PO BID #60 capsule 04/15/23 [Rx] HYDROcodone/APAP 5-325MG [[place] 5-325] 1 - 2 tab PO Q6HR PRN 7 Days #40 tab 04/15/23 [Rx] Omeprazole 40 mg PO DAILY 30 Days #30 cap 04/15/23 [Rx] Follow up Appointment(s)/Referral(s): Eric Magana MD [Medical Doctor] - 2 Weeks Activity/Diet/Wound Care/Special Instructions: Weight bear to tolerance on operative extremity with a walker. Keep operative dressing in place until follow-up in the office. Call the office if dressing becomes saturated or falls off. May shower over dressing. Take pain medications as needed. Take aspirin 81mg BID x 4 weeks for blood clot prevention. Follow-up in the office in two weeks at [facility]. Call the office with any questions or concerns, Discharge Disposition: HOME WITH HOME HEALTH SERVICES
--- NOTE | 2023-04-15 14:23 | P.CONS ---
History of Present Illness - Reason for Consult Consult date: 04/15/23 - Chief Complaint Status post right knee surgery - History of Present Illness 72-year-old lady with past medical history significant for hypertension, chronic kidney disease, history of recent Covid 19 infection in 2022 was admitted for right knee surgery. Patient was seen postprocedure, postoperative day 1 status post right knee arthroplasty Patient had no new complaints medically remained stable okay to discharge from medical standpoint with outpatient follow-up with PCP REVIEW OF SYSTEMS: Right knee pain CONSTITUTIONAL: No fever, no malaise, no fatigue. HEENT: No recent visual problems or hearing problems. Denied any sore throat. CARDIOVASCULAR: No chest pain, orthopnea, PND, no palpitations, no syncope. PULMONARY: No shortness of breath, no cough, no hemoptysis. GASTROINTESTINAL: No diarrhea, no nausea, no vomiting, no abdominal pain. NEUROLOGICAL: No headaches, no weakness, no numbness. HEMATOLOGICAL: Denies any bleeding or petechiae. GENITOURINARY: Denies any burning micturition, frequency, or urgency. MUSCULOSKELETAL/RHEUMATOLOGICAL: Denies any joint pain, swelling, or any muscle pain. ENDOCRINE: Denies any polyuria or polydipsia. The rest of the 14-point review of systems is negative. PHYSICAL EXAMINATION: GENERAL: The patient is alert and oriented x3, not in any acute distress. Well developed, well nourished. HEENT: Pupils are round and equally reacting to light. EOMI. No scleral icterus. No conjunctival pallor. Normocephalic, atraumatic. No pharyngeal erythema. No thyromegaly. CARDIOVASCULAR: S1 and S2 present. No murmurs, rubs, or gallops. PULMONARY: Chest is clear to auscultation, no wheezing or crackles. ABDOMEN: Soft, nontender, nondistended, normoactive bowel sounds. No palpable organomegaly. MUSCULOSKELETAL: Status post right knee arthroplasty, bandages no hematoma no bleeding noted. EXTREMITIES: No cyanosis, clubbing, or pedal edema. NEUROLOGICAL: Gross neurological examination did not reveal any focal deficits. SKIN: No rashes. Past Medical History Past Medical History: GERD/Reflux, Hyperlipidemia, Hypertension, Osteoarthritis (OA), Renal Disease Additional Past Medical History / Comment(s): DDD NECK,ENVIRONMENTAL ALLERGIES, CKD STAGE 3-A. History of Any Multi-Drug Resistant Organisms: None Reported Past Surgical History: Orthopedic Surgery Additional Past Surgical History / Comment(s): arthroscopic hilda knees, LEFT BUNIONECTOMY AND MID FOOT FUSION WITH CLIPS AND PINS (08/2020), COLONOSCOPY. bilat Cataract surgery 2019, lens implants Past Anesthesia/Blood Transfusion Reactions: No Reported Reaction Past Psychological History: No Psychological Hx Reported Smoking Status: Never smoker Past Alcohol Use History: Occasional Past Drug Use History: None Reported - Past Family History Mother Family Medical History: Cancer Additional Family Medical History / Comment(s): colon cancer Father Family Medical History: Cancer Additional Family Medical History / Comment(s): colon cancer Medications and Allergies Home Medications Medication Instructions Recorded Confirmed Type Raloxifene [Evista] 60 mg PO DAILY 04/03/16 04/14/23 History Solifenacin Succinate [Vesicare] 10 mg PO DAILY 04/03/16 04/14/23 History Alendronate Sodium [Fosamax] 70 mg PO REYES 02/07/19 04/14/23 History Irbesartan/Hydrochlorothiazide 1 each PO HS 02/07/19 04/14/23 History [Irbesartan-Hctz 300-12.5 mg Tb] Simvastatin [Zocor] 20 mg PO HS 02/07/19 04/14/23 History carvediloL [Coreg] 6.25 mg PO BID 02/07/19 04/14/23 History tiZANidine [Zanaflex] 4 mg PO DAILY PRN 02/07/19 04/14/23 History Multivit-Min/Iron/Folic/Lutein 1 each PO DAILY 02/11/21 04/14/23 History [Centrum Silver Women Tablet] Acetaminophen [Tylenol Arthritis] 650 mg PO DIRECTED PRN 05/20/22 04/14/23 History [place]-3/Dha/Epa/Fish Oil [Fish Oil 1 each PO DAILY 05/20/22 04/14/23 History 1,000 mg Softgel] Famotidine 40 mg PO DAILY 12/01/22 04/14/23 History Calcium Carbonate [Calcium] 666 mg PO CONTINUOUS 04/05/23 04/14/23 History Fexofenadine HCl [Mariann Allergy] 180 mg PO DAILY 04/05/23 04/14/23 History Iron 27 mg PO Q48H 04/05/23 04/14/23 History Ubidecarenone [Co Q-10] 200 mg PO DAILY 04/05/23 04/14/23 History Aspirin 81 mg PO BID 30 Days #60 tab 04/15/23 Rx Docusate [Colace] 100 mg PO BID #60 capsule 04/15/23 Rx HYDROcodone/APAP 5-325MG [[place] 1 - 2 tab PO Q6HR PRN 7 Days #40 04/15/23 Rx 5-325] tab Omeprazole 40 mg PO DAILY 30 Days #30 cap 04/15/23 Rx Allergies Allergy/AdvReac Type Severity Reaction Status Date / Time NSAIDS (Non-Steroidal AdvReac NO NSAIDS Verified 04/14/23 06:02 Anti-Inflamma DUE TO KIDNEY DISEASE. Physical Exam Vitals: Vital Signs Temp Pulse Resp BP Pulse Ox 04/15/23 08:51 97 04/15/23 06:55 98.5 F 78 16 159/79 94 L 04/15/23 01:51 97.5 F L 69 16 135/75 95 04/14/23 20:00 98.8 F 90 16 148/66 94 L Intake and Output 04/14/23 04/15/23 04/15/23 22:59 06:59 14:59 Output Total 30 170 Balance -30 -170 Output: Drainage 30 170 Right Lateral Knee 30 170 Other: # Voids 1 2 Results CBC & Chem 7: 04/15/23 05:50 Labs: Abnormal Lab Results - Last 24 Hours (Table) 04/15/23 Range/Units 05:50 WBC 18.67 H (4.50-10.00) X 10*3/uL RBC 3.38 L (4.10-5.20) X 10*6/uL Hgb 10.9 L (12.0-15.0) d/dL Hct 32.8 L (37.2-46.3) % MCH 32.2 H (27.0-32.0) pg Neutrophils # 15.42 H (1.80-7.70) X 10*3/uL Monocytes # 1.19 H (0.20-1.00) X 10*3/uL Eosinophils # 0 L (0.04-0.35) X 10*3/uL Assessment and Plan Assessment: Assessment and plan * Status post right knee arthroplasty * History of CAD stage IIIa * Hypertension * Postoperative anemia * Patient seen postoperative day one, noted to have elevated WBC count likely reactive postsurgical patient remains asymptomatic, hemoglobin 10.9 close to baseline, baseline between 12 and 11. * In regards to history of hypertension home medications including Coreg, continue Zocor, * Okay to discharge home from medical standpoint
--- NOTE | 2023-04-16 19:12 | P.ANPRN ---
Procedure Note - Anesthesia - Nerve Block Performed Right Adductor Canal Single Time Out Performed: Yes Date of Procedure: 04/14/23 Procedure Start Time: 06:48 Procedure Stop Time: 06:51 Location of Patient: PreOp Indication: Acute Post-Operative Pain, Requested by Surgeon Sedation Type: Sedate with meaningful contact maintained Preparation: Sterile Prep, Sterile Dressing Position: Supine Needle Types: Pajunk Needle Gauge: 21 Ultrasound used to visualize needle placement: Yes Ultrasound used to observe medication spread: Yes Blood Aspirated: No Pain Paresthesia on Injection Noted: No Resistance on Injection: Normal Image Stored and Saved: Yes Events: Uneventful and Well Tolerated (Ropivacaine 0.5% 20 mL Dexamethasone 4 mg)
--- NOTE | 2023-04-16 19:13 | P.ANPRN ---
Procedure Note - Anesthesia - Nerve Block Performed Right iPack Single Time Out Performed: Yes Date of Procedure: 04/14/23 Procedure Start Time: 06:52 Procedure Stop Time: 06:55 Location of Patient: PreOp Indication: Acute Post-Operative Pain, Requested by Surgeon Sedation Type: Sedate with meaningful contact maintained Preparation: Sterile Prep Position: Supine Needle Types: Pajunk Needle Gauge: 21 Ultrasound used to visualize needle placement: Yes Ultrasound used to observe medication spread: Yes Blood Aspirated: No Pain Paresthesia on Injection Noted: No Resistance on Injection: Normal Image Stored and Saved: Yes Events: Uneventful and Well Tolerated (Ropivacaine 0.5% 20 mL plus dexamethasone 4 mg)
== END 2023-04-15 13:03 | disposition home health service (06) ==
LOC: OR 05:38 → 4SSUR 11:05 → OR 04-15 13:03
PROVIDERS: ATTEND Orthopaedic Surgery
DX: M17.11 Unilateral primary osteoarthritis, right knee (principal); M25.761 Osteophyte, right knee; I12.9 Hypertensive chronic kidney disease with stage 1 through stage 4 chronic kidney disease, or unspecified chronic kidney disease; E78.5 Hyperlipidemia, unspecified; K21.9 Gastro-esophageal reflux disease without esophagitis; N18.31 Chronic kidney disease, stage 3a; Z88.6 Allergy status to analgesic agent; Z79.811 Long term (current) use of aromatase inhibitors; Z79.82 Long term (current) use of aspirin; Z79.899 Other long term (current) drug therapy
CPT/HCPCS: 27447; 94760; 97116; 97161; 64447; 64999; 85025; 73560; C1776; C1713; J2250; J0330; J1100 ×2; J2710; J0690; J2405; J3010; J2795; J2704; J2001; J2371

== ENCOUNTER → 2023-05-12 | Outpatient (CLI) | payer MEDICARE ==
[2023-05-12 20:03] LABS: Basophils # (A) 0.04 X 10*3/uL (0.00-0.10); Basophils % (A) 0.5 %; Eosinophils % (A) 2.4 %; HCT 41.2 % (37.2-46.3); HGB 13.3 d/dL (12.0-15.0); Lymphocytes # (A) 2.61 X 10*3/uL (0.90-5.00); Lymphocytes % (A) 31.9 %; MCH 32.2 pg (27.0-32.0); MCHC 32.3 d/dL (32.0-37.0); MCV 99.8 FL (80.0-97.0); Mean Platelet Volume 10.8 FL (9.5-12.2); Monocytes # (A) 0.57 X 10*3/uL (0.20-1.00); NRBC Per 100 WBC 0 X 10*3/uL (0.00-0.01); Neutrophils # (A) 4.75 X 10*3/uL (1.80-7.70); Neutrophils % (A) 58.1 %; Platelet Count 222 X 10*3/uL (140-440); RBC 4.13 X 10*6/uL (4.10-5.20); RDW 13.6 % (11.5-14.5); WBC 8.18 X 10*3/uL (4.50-10.00)
[2023-05-12 21:00] LABS: ALT 16 U/L (8-44); AST 21 U/L (13-35); Albumin 4.3 d/dL (3.8-4.9); Albumin/Globulin Ratio 1.95 Ratio (1.60-3.17); Alkaline Phosphatase 67 U/L (41-126); Blood Urea Nitrogen 16.2 mg/dL (9.0-27.0); Calcium 9.7 mg/dL (8.7-10.3); Carbon Dioxide 27.7 mmol/L (21.6-31.8); Chloride 98 mmol/L (96-109); Globulin 2.2 d/dL (1.6-3.3); Glucose 92 mg/dL (70-110); Iron 79 UG/DL (50-170); Magnesium 2.3 mg/dL (1.5-2.4); Potassium 4.2 mmol/L (3.5-5.5); Sodium 137 mmol/L (135-145); Total Bilirubin 0.8 mg/dL (0.3-1.2); Total Iron Binding Capacity 311 UG/DL (228-460); Total Protein 6.5 d/dL (6.2-8.2)
[2023-05-12 21:58] LABS: Appearance,Urine Clear (Clear); Bilirubin,Urine Negative (Negative); Blood,Urine Negative (Negative); Color,Urine Yellow (Yellow); Ketones,Urine Negative (Negative); Nitrite,Urine Negative (Negative); Specific Gravity,Urine 1.014 (1.001-1.030); Urobilinogen,Urine 0.2 E.U./DL
== END | disposition home or self-care (01) ==
LOC: LABWHC1 11:23
PROVIDERS: ATTEND Internal Medicine
DX: E55.9 Vitamin D deficiency, unspecified (principal); D63.1 Anemia in chronic kidney disease; N18.31 Chronic kidney disease, stage 3a; N39.0 Urinary tract infection, site not specified; N25.81 Secondary hyperparathyroidism of renal origin; M10.9 Gout, unspecified
CPT/HCPCS: 36415; 80053; 81003; 82306; 82728; 83540; 83550; 83735; 83970; 84100; 84550; 85025

== ENCOUNTER → 2023-12-19 | Outpatient (CLI) | payer MEDICARE ==
[2023-12-19 16:17] LABS: HCT 39.1 % (37.2-46.3); HGB 13.1 g/dL (12.0-15.0); MCHC 33.5 g/dL (32.0-37.0); MCV 95.6 FL (80.0-97.0); Mean Platelet Volume 11.2 FL (9.5-12.2); NRBC Per 100 WBC 0 X 10*3/uL (0.00-0.01); Platelet Count 192 X 10*3/uL (140-440); RBC 4.09 X 10*6/uL (4.10-5.20); RDW 13.2 % (11.5-14.5); WBC 6.83 X 10*3/uL (4.50-10.00)
[2023-12-19 16:37] LABS: % Iron Saturation 24.03 (12.00-45.00); ALT 19 U/L (8-44); AST 23 U/L (13-35); Albumin 3.8 g/dL (3.8-4.9); Albumin/Globulin Ratio 1.81 Ratio (1.60-3.17); Alkaline Phosphatase 57 U/L (41-126); BUN/Creat Ratio 11.62 Ratio (12.00-20.00); Blood Urea Nitrogen 15.1 mg/dL (9.0-27.0); Calcium 9.5 mg/dL (8.7-10.3); Carbon Dioxide 22.9 mmol/L (21.6-31.8); Chloride 101 mmol/L (96-109); Globulin 2.1 g/dL (1.6-3.3); Glucose 113 mg/dL (70-110); Iron 68 UG/DL (50-170); Potassium 4.3 mmol/L (3.5-5.5); Sodium 135 mmol/L (135-145); Total Bilirubin 0.6 mg/dL (0.3-1.2); Total Iron Binding Capacity 283 UG/DL (228-460); Total Protein 5.9 g/dL (6.2-8.2)
[2023-12-19 19:47] LABS: Microalbumin Creatinine Ratio <27 mg/g Cr (0-30); Urine Creatinine 44.6 mg/dL (28.0-217.0)
== END | disposition home or self-care (01) ==
LOC: LABWHC1 09:10
PROVIDERS: ATTEND Internal Medicine
DX: N18.31 Chronic kidney disease, stage 3a (principal)
CPT/HCPCS: 36415; 80053; 82043; 82570; 82728; 83540; 83550; 85027

== ENCOUNTER → 2023-12-27 | Outpatient (CLI) | payer MEDICARE ==
--- NOTE | 2023-12-27 21:57 | US ---
EXAMINATION TYPE: US kidneys/renal and bladder DATE OF EXAM: 12/27/2023 COMPARISON: NONE CLINICAL INDICATION: Female, 73 years old with history of N18.31 CHRONIC KIDNEY DISEASE, STAGE 3A; CK D, known cyst, no symptoms EXAM MEASUREMENTS: Right Kidney: 9.1 x 3.3 x 3.5 cm Left Kidney: 8.8 x 4.2 x 4.9 cm Right Kidney: superior pole cyst, 1.8 x 1.6 x 1.3cm cyst seen Left Kidney: No hydronephrosis or masses seen Bladder: wnl IMPRESSION: 1. Superior pole right renal cyst
== END | disposition home or self-care (01) ==
LOC: RADUSWWP 08:14
PROVIDERS: ATTEND Internal Medicine
DX: N18.31 Chronic kidney disease, stage 3a (principal); N28.1 Cyst of kidney, acquired
CPT/HCPCS: 76770

== ENCOUNTER → 2024-02-12 | Outpatient (CLI) | payer MEDICARE ==
--- NOTE | 2024-02-12 20:54 | CT ---
EXAMINATION TYPE: CT abdomen pelvis wo con CT DLP: 480.70 mGycm, Automated exposure control for dose reduction was used. DATE OF EXAM: 02/12/2024 8:33 AM COMPARISON: Renal ultrasound 12/27/2023 CLINICAL INDICATION:Female, 73 years old with history of R10.9 ABDOMINAL PAIN; Chronic pain mid/lower LT side of back TECHNIQUE: Standard CT of the abdomen and pelvis without IV or oral contrast. Lack of IV or oral co ntrast limits evaluation of solid and hollow organ viscera. Coronal and sagittal reformats were perfo rmed. FINDINGS: LOWER CHEST: Left lower lobe subpleural 2 mm micronodule. ABDOMEN LIVER: Right hepatic lobe 1.2 cm cyst. Noncirrhotic morphology. GALLBLADDER AND BILE DUCTS: Unremarkable. PANCREAS: Unremarkable. SPLEEN: Unremarkable. ADRENAL GLANDS: Unremarkable. KIDNEYS AND URETERS: No evidence of hydronephrosis or renal calculus. Somewhat lobulated appearance o f both kidneys with left greater than right. Right superior pole exophytic 2.6 cm cyst which correspo nds to simple cyst on recent ultrasound. PELVIS BLADDER: Incompletely distended but grossly unremarkable. REPRODUCTIVE: Unremarkable. ABDOMEN & PELVIS STOMACH AND BOWEL: Scattered sigmoid diverticulosis. No focal wall thickening or surrounding inflamma tory changes. The appendix is within normal limits. No evidence of bowel obstruction. PERITONEUM: No evidence of pneumoperitoneum or free fluid. VASCULATURE: Moderate atherosclerotic calcifications are present throughout the abdominal aorta and i ts branches. No evidence of aortic aneurysm. Few pelvic phleboliths. MUSCULOSKELETAL: No acute osseous abnormalities. Intramuscular lipoma within the anterior left thigh musculature. 9 mm chronic focus within the posterior right ischium and additional 6 mm sclerotic focu s within the right hemisacrum. Probable bone islands. Multilevel degenerative disc disease and facet arthropathy. This is most pronounced at L4-L5 with endplate sclerosis, vacuum disc disease, posterior osteophyte and prominent bilateral facet arthropathy. This results in at least mild to moderate cent ral canal stenosis and at least mild to moderate bilateral neural foramina stenosis. LYMPH NODES: No gross evidence for lymphadenopathy. SOFT TISSUE/ABDOMINAL WALL: Unremarkable IMPRESSION: 1. No acute process. 2. Scattered sigmoid diverticulosis. 3. Multilevel degenerative disease and facet arthropathy most pronounced at L4-L5 with at least mild- to-moderate central canal and bilateral neural foraminal stenosis.
== END | disposition home or self-care (01) ==
LOC: RADCTMAIN 08:07
PROVIDERS: ATTEND Family Medicine
DX: K57.30 Diverticulosis of large intestine without perforation or abscess without bleeding (principal); M47.816 Spondylosis without myelopathy or radiculopathy, lumbar region; M99.73 Connective tissue and disc stenosis of intervertebral foramina of lumbar region
CPT/HCPCS: 74176

== ENCOUNTER → 2024-03-19 | Outpatient (CLI) | payer MEDICARE ==
[2024-03-19 09:40] LABS: HCT 39.9 % (34.0-46.0); HGB 13.4 gm/dL (11.4-16.0); MCH 32.9 pg (25.0-35.0); MCHC 33.5 g/dL (31.0-37.0); MCV 98.2 fL (80.0-100.0); Mean Platelet Volume 7.9; Platelet Count 200 k/uL (150-450); RBC 4.06 m/uL (3.80-5.40); RDW 13.5 % (11.5-15.5)
[2024-03-19 15:53] LABS: Appearance,Urine Clear (Clear); Bilirubin,Urine Negative (Negative); Blood,Urine Negative (Negative); Color,Urine Yellow (Yellow); Ketones,Urine Negative (Negative); Nitrite,Urine Negative (Negative); PH, Urine 7.5; Specific Gravity,Urine 1.009 (1.001-1.030); Urobilinogen,Urine 0.2 E.U./DL
[2024-03-19 17:43] LABS: % Iron Saturation 27.01 (12.00-45.00); ALT 25 U/L (8-44); AST 19 U/L (13-35); Albumin 3.9 g/dL (3.8-4.9); Albumin/Globulin Ratio 2.05 Ratio (1.60-3.17); Alkaline Phosphatase 68 U/L (41-126); BUN/Creat Ratio 13.91 Ratio (12.00-20.00); Blood Urea Nitrogen 15.3 mg/dL (9.0-27.0); Calcium 9.2 mg/dL (8.7-10.3); Carbon Dioxide 23.8 mmol/L (21.6-31.8); Chloride 103 mmol/L (96-109); Globulin 1.9 g/dL (1.6-3.3); Glucose 114 mg/dL (70-110); Iron 74 UG/DL (50-170); Phosphorus 2.5 mg/dL (2.4-5.1); Potassium 4.3 mmol/L (3.5-5.5); Sodium 137 mmol/L (135-145); Total Bilirubin 0.6 mg/dL (0.3-1.2); Total Iron Binding Capacity 274 UG/DL (228-460); Total Protein 5.8 g/dL (6.2-8.2); Uric Acid 5.5 mg/dL (2.9-7.7)
[2024-03-19 22:25] LABS: Microalbumin Creatinine Ratio <24 mg/g Cr (0-30); Urine Creatinine 50.4 mg/dL (28.0-217.0)
[2024-03-20 11:14] LABS: Free Kappa Lt Chain Qnt, Serum 1.77 mg/dL (0.33-1.94)
[2024-03-20 11:15] LABS: Free Lambda Lt Chain Qnt, Seru 2.02 mg/dL (0.57-2.63)
== END | disposition home or self-care (01) ==
LOC: LABWHC1 08:19
PROVIDERS: ATTEND Internal Medicine
DX: N18.31 Chronic kidney disease, stage 3a (principal); D63.1 Anemia in chronic kidney disease; N39.0 Urinary tract infection, site not specified; R80.9 Proteinuria, unspecified; E55.9 Vitamin D deficiency, unspecified; N25.81 Secondary hyperparathyroidism of renal origin; M10.9 Gout, unspecified
CPT/HCPCS: 36415; 80053; 81003; 82043; 82306; 82570; 82728; 83540; 83550; 83735; 83883; 83970; 84100; 84166; 84550; 85027; 86334

== ENCOUNTER → 2024-03-29 | Day surgery (SDC) | payer MEDICARE ==
[2024-03-25 15:58] VITALS: BMI 29.7
[~2024-03-29] MED LIST changes: +PROPOFOL 10 MG/ML 20 ML VIAL IV ONE; -REGADENOSON 0.4 MG/5 ML SYRINGE IV PRN
[2024-03-29 13:26] VITALS: RESP 16; TEMP 97.2
[2024-03-29] MEDS: LIDOCAINE 1% (10MG/ML) FOR IV START INTRADERMA PRN (13:30)
[2024-03-29] MEDS: LACTATED RINGERS 1,000 ML IV SCH (13:31)
[2024-03-29] MEDS: IV FLUID CONTINUATION 1,000 ML IV ONE (13:39)
--- NOTE | 2024-03-29 14:37 | P.PCN ---
Date of Procedure: 03/29/24 Procedure(s) Performed: BRIEF HISTORY: Patient is a 73-year-old pleasant White female scheduled for an elective colonoscopy as a part of Screening for colon cancer. She does have family history of colon cancer diagnosed in her mother at age 68 and father at age 70. PROCEDURE PERFORMED: Colonoscopy. PREOPERATIVE DIAGNOSIS: Screening for colon cancer/family history of colon cancer IV sedation per Anesthesia. PROCEDURE: After informed consent was obtained, the patient, was brought into the endoscopy unit. IV sedation was administered by Anesthesia under continuous monitoring. Digital rectal examination was normal. Initially the Olympus CF-160 flexible video colonoscope was then inserted in the rectum, gradually advanced into the cecum without any difficulty. Careful examination was performed as the scope was gradually being withdrawn. Ileocecal valve and the appendiceal orifice were visualized and appeared normal. Prep was excellent. Mucosa of the cecum, ascending colon, transverse colon, descending colon, sigmoid colon, and rectum appeared normal.Scattered sigmoid diverticulosis. Retroflexion was performed in the rectum and no lesions were seen. The patient tolerated the procedure well. IMPRESSION: Normal-appearing colon from rectum to cecum with no evidence of colorectal neopl ewelina . Scattered sigmoid diverticula RECOMMENDATIONS: Findings of this examination were discussed with the patient As well as a family. She was advised to have a repeat screening colonoscopy in 5 years because of the family history of colon cancer
[2024-03-29 14:57] VITALS: BP 161/82; PULSE 66
== END ==
LOC: ORWHC2ENDO 12:28
PROVIDERS: ATTEND Internal Medicine Gastroenterology
DX: Z12.11 Encounter for screening for malignant neoplasm of colon (principal); K57.30 Diverticulosis of large intestine without perforation or abscess without bleeding; I12.9 Hypertensive chronic kidney disease with stage 1 through stage 4 chronic kidney disease, or unspecified chronic kidney disease; E78.5 Hyperlipidemia, unspecified; N18.31 Chronic kidney disease, stage 3a; K21.9 Gastro-esophageal reflux disease without esophagitis; Z80.0 Family history of malignant neoplasm of digestive organs; Z79.899 Other long term (current) drug therapy
CPT/HCPCS: J2704; G0105; 45378

== ENCOUNTER → 2024-06-06 | Outpatient (CLI) | payer MEDICARE ==
--- NOTE | 2024-06-07 19:08 | BD ---
EXAMINATION TYPE: Axial Bone Density DATE OF EXAM: 06/06/2024 CLINICAL HISTORY: 73 years old Female. ICD-10 CODE: Z78.0 ASYMPTOMATIC menopausal state Height: 5 ft 4 in Weight: 174 FRAX RISK QUESTIONS: Alcohol (3 or more units per day): no Family History (Parent hip fracture): no Glucocorticoids (More than 3mos): no (Ex: prednisone, prednisolone, methylprednisolone, dexamethasone, and hydrocortisone). History of Fracture in Adulthood: yes Secondary Osteoporosis: 1. Type 1 Diabetes: no 2. Hyperthyroidism: no 3. Menopause before 45: no 4. Malnutrition: no 5. Chronic liver disease: no Rheumatoid Arthritis: no Current Tobacco Use: no RISK FACTORS HISTORY OF: Surgery to Spine/Hip(right/left)/Wrist (right/left): no MEDICATIONS: Thyroid Medications: none Osteoporosis Medications: yes evista for years EXAM MEASUREMENTS: Bone mineral densitometry was performed using the BIOSAFE System. Bone mineral density as measured about the Lumbar spine is: ----- L1-L4(G/cm2): 1.689 T Score Values are as follows: ----- L1: 1.8 ----- L2: 2.9 ----- L3: 5.6 ----- L4: 5.7 ----- L1-L4: 4.2 Z Score Values are as follows: ----- L1: 3.1 ----- L2: 4.2 ----- L3: 6.9 ----- L4: 6.9 ----- L1-L4: 5.5 Bone mineral density has: increased 2.9 % since study of: 2021 Bone mineral density about the R hip (g/cm2): 0.839 Bone mineral density about the L hip (g/cm2): 0.869 T Score values are as follows: -----R Neck: -1.4 -----L Neck: -1.2 -----R Total: -0.9 -----L Total: -0.5 Z Score values are as follows: -----R Neck: 0.1 -----L Neck: 0.3 -----R Total: 0.4 -----L Total: 0.8 Bone mineral density has: decreased -3.0 % since study of: 2021 FRAX%s: The graph provided illustrates a 15.7 % chance for a major osteoporotic fx and a 4.8 % chance for the hips probability for fx in 10 years time. IMPRESSION: Osteopenia (T Score between -2.5 and -1). There is slightly increased risk of fracture and the patient may be considered for treatment. Re-Screen 2-5 years. NOTE: T-SCORE=SD OF THE YOUNG ADULT MEAN. [facility], , 06/07/2024 7:06 PM
== END | disposition home or self-care (01) ==
LOC: RADBDWWP 08:48
PROVIDERS: ATTEND Family Medicine
DX: Z78.0 Asymptomatic menopausal state
CPT/HCPCS: 77080

== ENCOUNTER → 2024-06-06 | Outpatient (CLI) | payer MEDICARE ==
--- NOTE | 2024-06-09 13:56 | MM ---
Reason for Exam: Screening (asymptomatic). Last screening mammogram was performed 12 month(s) ago. Patient History: Menarche at age 14. First Full-Term at age 28. Postmenopausal. Previous Hyperplasia w/o Atypia at age 71. Patient used Estrogen for 2 years. Patient used Hormonal Contraceptives for 5 years. 06/23/2022, Benign MG stereo VAD BX LT on the left side. Paternal grandmother had breast cancer, age 85. Maternal grandmother had breast cancer, age 60. Risk Values: Whitney 5 year model risk: 2.3%. NCI Lifetime model risk: 6.0%. Prior Study Comparison: 05/19/2022 Left MG 3D work up w/cad LT, [facility]. 11/30/2022 Left MG 3D diag mammo w/cad LT, [facility]. 06/05/2023 Bilateral MG 3D screening mammo w/cad, [facility]. Tissue Density: There are scattered areas of fibroglandular density. Findings: Analyzed By CAD. The pattern is symmetrical. There are benign round calcifications are present. Some vascular calcifications within the left breast. No suspicious groups of microcalcifications, spiculated or lobular masses, architectural distortion or other secondary signs of malignancy are mammographically apparent. Overall Assessment: Benign, BI-RAD 2 Management: Screening Mammogram of both breasts in 1 year. A negative mammogram report should not preclude additional follow up of suspicious palpable abnormalities. Patient should continue monthly self breast exam. A clinical breast exam by your physician is recommended on an annual basis and results should be correlated with mammographic findings. Note on Whitney scores and lifetime risk: 1. A Whitney score greater than 3% is considered moderate risk. If this is the case, consider specialist referral to assess eligibility for a risk reducing agent. 2. If overall lifetime risk for the development of breast cancer is 20% or higher, the patient may qualify for future screening with alternating mammogram and breast MRI. [facility], , 06/09/2024 1:53 PM. Electronically signed and approved by: Romie Oliveira D.O. Radiologis
== END | disposition home or self-care (01) ==
LOC: RADMAMWWP 08:46
PROVIDERS: ATTEND Surgery
DX: Z12.31 Encounter for screening mammogram for malignant neoplasm of breast
CPT/HCPCS: 77063; 77067

== ENCOUNTER → 2024-07-11 | Outpatient (CLI) | payer MEDICARE ==
[2024-07-11 12:35] VITALS: BP 137/78; PULSE 58; RESP 17; TEMP 97.9
--- NOTE | 2024-07-11 12:43 | P.PN ---
Subjective Progress Note Date: 07/11/24 Principal diagnosis: fibrocystic breast changes 06/06/24 Principal diagnosis: fibrocystic breast changes Mallorie had a routine screening mammogram performed on 9221. The mammogram revealed calcifications of concern in the left breast. This was confirmed on a left breast diagnostic mammogram of 9821. Stereotactic core biopsy was recommended. The patient did not feel any lumps masses or nodules of concern in either breast. She had not had any recent trauma or infection in her breast. She had not had any surgery or biopsies of her breast in the past. This was found on a routine screening mammogram. She had a left breast stero biopsy on 06-23-22 which was benign. She had a bilateral mammogram on 06-06-24 which was BIRAD 2. This was personally interpreted. She does not complain of any new lumps masses or nodules of concern in either breast. Whitney 5 year risk: 5.3% lifetime risk: 6% Caffiene: 2 cups/day nicotine: none chocolate: occasional BCP: < 5 years in early twenties Family History: mother: colon cancer maternal grandmother: breast cancer at 85 maternal grandfather: brain cancer father: colon cancer paternal grandmother: breast cancer Hormonal History: menarche: 14 , age at first : 28, breast fed: no menopause: 50 hormones: 2 years; at the time of menopause; Premarin cream one time a month Surgical history: midfoot fusion left foot and bunyon cataract surgery arthoscopy on both knees total right knee replacement Medical History: chronic kidney disease HTN ostepenia COVID Oct 2022 Social History: Nicotine: Negative Alcohol: Negative Drugs: Negative - Constitutional Constitutional: Denies chills, Denies fever - EENT Eyes: bilateral as per HPI, denies blurred vision, denies pain Ears: bilateral: decreased hearing (hearing aids), tinnitus Ears, nose, mouth and throat: Denies headache, Denies sore throat - Breasts Breasts: bilateral: as per HPI - Cardiovascular Cardiovascular: Denies chest pain, Denies shortness of breath - Respiratory Respiratory: Denies cough - Gastrointestinal Comment: last colonoscopy 5 years ago Gastrointestinal: Denies abdominal pain, Denies diarrhea, Denies nausea, Denies vomiting - Genitourinary (Female) Genitourinary: Denies dysuria, Denies hematuria - Menstruation Menstruation: Reports postmenopausal - Musculoskeletal Comment: arthritis in knees Musculoskeletal: Reports as per HPI, Denies myalgias - Integumentary Integumentary: Denies pruritus, Denies rash - Neurological Neurological: Denies numbness, Denies weakness - Psychiatric Psychiatric: Denies anxiety, Denies depression - Endocrine Endocrine: Denies fatigue, Denies weight change - Hematologic/Lymphatic Comment: none - Allergic/Immunologic Allergic/Immunologic: Reports seasonal allergies Past Medical History Past Medical History: GERD/Reflux, Hyperlipidemia, Hypertension, Osteoarthritis (OA), Renal Disease Additional Past Medical History / Comment(s): DDD NECK,ENVIRONMENTAL ALLERGIES, CKD STAGE 3-A. History of Any Multi-Drug Resistant Organisms: None Reported Past Surgical History: Orthopedic Surgery Additional Past Surgical History / Comment(s): arthroscopic hilda knees, LEFT BUNIONECTOMY AND MID FOOT FUSION WITH CLIPS AND PINS (08/2020), COLONOSCOPY. bilat Cataract surgery 2019, lens implants Past Anesthesia/Blood Transfusion Reactions: No Reported Reaction Past Psychological History: No Psychological Hx Reported Smoking Status: Never smoker Past Alcohol Use History: Occasional Past Drug Use History: None Reported - Past Family History Mother Family Medical History: Cancer Additional Family Medical History / Comment(s): colon cancer Father Family Medical History: Cancer Additional Family Medical History / Comment(s): colon cancer Medications and Allergies Home Medications Medication Instructions Recorded Confirmed Type Raloxifene [Evista] 60 mg PO DAILY 04/03/16 06/23/22 History Solifenacin Succinate [Vesicare] 10 mg PO DAILY 04/03/16 06/23/22 History Alendronate Sodium [Fosamax] 70 mg PO REYES 02/07/19 06/23/22 History Irbesartan/Hydrochlorothiazide 1 each PO HS 02/07/19 06/23/22 History [Irbesartan-Hctz 300-12.5 mg Tb] Simvastatin [Zocor] 20 mg PO HS 02/07/19 06/23/22 History carvediloL [Coreg] 3.125 mg PO BID 02/07/19 06/23/22 History tiZANidine [Zanaflex] 4 mg PO DAILY PRN 02/07/19 06/23/22 History Calcium Carbonate [Calcium] 600 mg PO DAILY 02/11/21 06/23/22 History Iron 45 mg PO DAILY 02/11/21 06/23/22 History Loratadine [Claritin] 10 mg PO DAILY 02/11/21 06/23/22 History Multivit-Min/Iron/Folic/Lutein 1 each PO DAILY 02/11/21 06/23/22 History [Centrum Silver Women Tablet] Omeprazole 20 mg PO DAILY 02/11/21 06/23/22 History Ubidecarenone [Co Q-10] 400 mg PO DAILY 02/11/21 06/23/22 History Acetaminophen [Tylenol Arthritis] 650 mg PO DAILY 05/20/22 06/23/22 History [place]-3/Dha/Epa/Fish Oil [Fish Oil 1 each PO DAILY 05/20/22 06/23/22 History 1,000 mg Softgel] Allergies Allergy/AdvReac Type Severity Reaction Status Date / Time No Known Allergies Allergy Verified 06/23/22 07:39 Objective - Vital Signs Vital signs: Vital Signs Temp 97.9 F 07/11/24 12:32 Pulse 58 L 07/11/24 12:32 Resp 17 07/11/24 12:32 BP 137/78 07/11/24 12:32 Pulse Ox 97 07/11/24 12:32 FiO2 Intake & Output 07/10/24 07/11/24 07/11/24 18:59 06:59 18:59 Weight 78.925 kg - Constitutional General appearance: Present: cooperative - EENT Eyes: Present: EOMI ENT: Present: hearing grossly normal - Neck Neck: Present: normal ROM - Respiratory Respiratory: bilateral: CTA - Cardiovascular Rhythm: regular Heart sounds: normal: S1, S2 - Integumentary Integumentary: Present: normal turgor - Musculoskeletal Musculoskeletal: Present: gait normal - Psychiatric Psychiatric: Present: A&O x's 3, appropriate affect, intact judgment & insight - Additional findings Additional findings: Breast Exam: BRA: 38C Inspection: Bilateral grade 2/3 ptosis Palpation: Right breast: Multi-positional exam fibrocystic changes no dominant masses or nodules of concern Right axilla: No adenopathy of concern Left breast: Multiple positional exam fibrocystic changes no dominant masses or nodules of concern Left axilla: No adenopathy of concern Assessment and Plan Assessment: Impression: Fibrocystic breast changes Whitney risk is 2.3% to 5 years we've discussed chemoprophylaxis and patient has declined at this time We have also discussed that her breasts are dense and at this time she is going to be followed with mammograms Plan: Bilateral mammogram May 2025 with physician exam at that time Cc: Dr. Jang
== END ==
LOC: WWCWWP 12:13
PROVIDERS: ATTEND Surgery
DX: N60.11 Diffuse cystic mastopathy of right breast (principal); N60.12 Diffuse cystic mastopathy of left breast; Z80.3 Family history of malignant neoplasm of breast

== ENCOUNTER → 2024-08-06 | Outpatient (CLI) | payer MEDICARE ==
[2024-08-06] MEDS: DENOSUMAB 60 MG/ML 1 ML SYRINGE SQ NR (10:05)
[2024-08-06 10:07] VITALS: RESP 16; TEMP 98.2
[2024-08-06 10:27] VITALS: BP 165/90; PULSE 59
== END ==
LOC: PROCWHC3 09:46
PROVIDERS: ATTEND Family Medicine
DX: M85.80 Other specified disorders of bone density and structure, unspecified site (principal)
CPT/HCPCS: 96372; J0897

== ENCOUNTER → 2025-02-28 | Outpatient (CLI) | payer MEDICARE ==
[2025-02-28 08:09] VITALS: BP 163/69; PULSE 65; RESP 16; TEMP 98.2
[2025-02-28] MEDS: DENOSUMAB 60 MG/ML 1 ML SYRINGE SQ NR (08:09)
== END ==
LOC: PROCWHC3 07:56
PROVIDERS: ATTEND Family Medicine
DX: M81.0 Age-related osteoporosis without current pathological fracture (principal)
CPT/HCPCS: 96372; J0897